=== PATIENT | female | born 1955 | race Caucasian/White ===

== ENCOUNTER 2024-09-22 13:40 | Inpatient (IN) | payer OTHER, SELFPAY ==
--- NOTE | ~2024-09-22 | CT_ITS ---
CLINICAL HISTORY: confusion hallucinations CT head without contrast Comparison: None Findings: No intra-axial mass, midline shift, hydrocephalus, or acute hemorrhage. There is mild cortical atrophy. The visualized paranasal sinuses and mastoid air cells are normal. The orbits are within normal limits. No skull fracture. IMPRESSION: 1. No acute intracranial findings. This document has been electronically signed by: Sohail Martinez MD on 09/24/2024 10:55:56
[2024-09-22 16:00] VITALS: BP 124/72; PULSE 72; RESP 16; TEMP 36.6; O2SAT 97; BMI 28.2
--- NOTE | 2024-09-22 18:56 | PC.ADMIT ---
Chelita Mcgrath arrived via stretcher from [facility]. She is awake and alert and oriented x4. She appears to be of stated age. Her first language is Georgian, she speaks/understands Yoruba selectively. Per the ED nurse they had been talking together in Yoruba all shift and then she switched to only Georgian for no particular reason. Hospital firer marine present for admission. She was cooperative with skin/safety check. Her skin check is only significant for changes in pigmentation on anterior legs and feet, she reports ?this only started since moving into that apartment?.? Chelita has a documented history of schizophrenia, HTN, GERD and hypothyroidism.? She doesn't smoke, drink or do any illicit drugs. She stopped taking her medications around July 2024. Her daughters picking machine operator helper her RX for her but do not fill her pill case.? When asked what brought her to the hospital, ?my daughters said I needed to?, when pressed further, ?someone is coming into my house and putting something in my water and it gives me stomach pain and I have diarrhea.?, ?it makes the back of my head hurt too?, she is expressing paranoid thought processes. ?They are listening, [employer] came in and set up these things that are listening to everything, they are here too.? She could not be reassured. She eyed this nurse suspiciously throughout the admission. ?You look weird, what's wrong with you?? she asked this nurse. ?I shouldn't sign anything while I am here. My daughter Nena is in on it too, all my daughters are.? Since arrival she has been asking ?what did I do to you, to any of you? Why do you want to hurt me? Your all talking about me, laughing at me! I hear you, the other people too!? She cannot be reassured. She denies urges to harm self or others and any visual or perceptual disturbances, but she clearly is responding. She refused to sign in and remains on a 12B. She refused to sign any paperwork, she does not know her pharmacy ?its on [address]?, she doesn't want me to call her daughter and no medications were listed in the paperwork from [facility]. She is unknown to this hospital. She was oriented to room and routine and is on 15 minute safety checks.?
[2024-09-22 20:00] VITALS: BP 191/86; PULSE 86; TEMP 37.1; O2SAT 98
[2024-09-22] MEDS: Zolpidem Tartrate 5 MG TABLET 10 MG PO (20:45)
[2024-09-22] MEDS: hydrOXYzine HCL 25 MG TABLET PO (20:45)
[2024-09-22 22:03] VITALS: BP 191/86; PULSE 98
[2024-09-22] MEDS: carvediloL 25 MG TABLET PO (22:03)
[2024-09-22] MEDS: traZODone HCL 50 MG TABLET 150 MG PO (22:08)
[2024-09-23] MEDS: Levothyroxine Sodium 88 MCG TABLET PO (06:37)
[2024-09-23] MEDS: Atorvastatin Calcium 40 MG TABLET PO (08:44)
[2024-09-23] MEDS: Calcium Carbonate 750 MG TAB.CHEW PO (08:45)
[2024-09-23] MEDS: Gabapentin 300 MG CAPSULE PO ×2 (08:45→20:51)
[2024-09-23 08:47] VITALS: BP 133/87; PULSE 78
[2024-09-23] MEDS: carvediloL 25 MG TABLET PO ×2 (08:47→20:04)
[2024-09-23] MEDS: Valsartan 160 MG TABLET PO (08:47)
[2024-09-23 08:48] VITALS: BP 133/87
[2024-09-23] MEDS: amLODIPine Besylate 10 MG TABLET PO (08:48)
[2024-09-23 08:57] VITALS: BP 133/87; PULSE 78; RESP 20; TEMP 36.5; O2SAT 96
[2024-09-23 09:01] LABS: Estimated Average Glucose 105 mg/dL; Hemoglobin A1c % 5.3 % (<6.0)
[2024-09-23 09:24] LABS: Alanine Aminotransferase 23 U/L (0-31); Alkaline Phosphatase 51 U/L (39-117); Anion Gap 10 (12-20); Aspartate Amino Transferase 23 U/L (5-31); Bilirubin Total 0.3 mg/dL (0.0-1.0); Blood Urea Nitrogen 7 mg/dL (9-16); Calcium 9.3 mg/dL (8.4-10.2); Carbon Dioxide 33 mmol/L (22-29); Chloride 104 mmol/L (96-108); Cholesterol 193 mg/dL (<200); Estimated Glomerular Filt Rate > 60; Glucose Random 97 mg/dL (60-115); HDL Cholesterol 45 mg/dL (>40); LDL Cholesterol Calculated 121 mg/dL (<100); Potassium 3.8 mmol/L (3.3-5.1); Sodium 143 mmol/L (135-145); Total Protein 7.3 g/dL (6.5-8.0); Triglycerides 135 mg/dL (<150)
[2024-09-23 09:41] LABS: Free T4 (Free Thyroxine) 0.81 ng/dL (0.71-1.85); Thyroid Stimulating Hormone 25.14 uIU/mL (0.32-4.0)
--- NOTE | 2024-09-23 10:36 | HO.PM.IMCN ---
History of Present Illness Data of Consult Service Date: 09/23/24 Primary Care Provider: None Physician HPI Reason for consult: Admission H&P Pt is a 69-year-old female with a PMH significant for?HTN, HLD, hypothyroidism, GERD, and schizophrenia who is admitted to M5 psychiatry unit for delusions and medication noncompliance. Pt apparently believes her family and other individuals has been sneaking into her house put an unknown substance into water and coffee to make her sick. Daughter reported that pt had endorsed SI with plan to jump out of a 5th story window. Medical consult for admission H&P. Pt seen and evaluated on the unit where pt is resting comfortably in bed. Pt has been moved to the isolation room due to active psychotic state and accusatory statements made toward staff and previous roommates. Pt continues to be actively psychotic at time of interview and exam, and is difficult to redirect. HPI and ROS difficult to obtain due to patient's psychiatric state and tangential thoughts. However, pt does not appear to have any acute medical complaints at this time. Labs reviewed, significant for elevated TSH of 25.14 but normal T4 at 0.81. Review of Systems Review of Systems: Difficult to obtain due to patient's mental status. PMFSH Social History Household Members: None Housing: Apartment Patient Tobacco Use Status: Never used Tobacco Currently Displaying Signs/Symptoms of Drug Intoxication Withdrawal: No Spiritual Healthcare Practices: refusing to respond [facility] Practices: I believe in shereen and he knows I love him, thats all Advance Directives: No Advance Directives Information Provided: Yes Do you have thoughts of harming others: None Do you have a plan to hurt others: No Plan Recently lost weight without trying: Yes How much weight loss: 14-23 pounds Eating poorly because of decreased appetite: No Nutrition screen score: 4 Patient : No : No Poor oral hygiene: No Meds Allergies Allergy/AdvReac Type Severity Reaction Status Date / Time morphine Allergy Unknown Verified 09/22/24 15:41 oxycodone [From Percocet] Allergy Unknown Verified 09/22/24 15:41 lactose AdvReac Diarrhea Verified 09/22/24 15:41 Active Medications: Current Medications Acetaminophen (Acetaminophen 325 Mg Tablet) 650 mg PO Q6H PRN PRN Reason: Headache/Pain, Scale 1-10 Al Hydroxide/Mg Hydroxide (Magnesium Hydrox/Alum Hydrox 30 Ml Oral.Susp) 30 ml PO Q6H PRN PRN Reason: Heartburn/Nausea Amlodipine Besylate (Amlodipine Besylate 10 Mg Tablet) 10 mg PO DAILY [facility]; Protocol Last Admin: 09/23/24 08:48 Dose: 10 mg Atorvastatin Calcium (Atorvastatin Calcium 40 Mg Tablet) 40 mg PO DAILY [facility] Last Admin: 09/23/24 08:44 Dose: 40 mg Calcium Carbonate (Calcium Carbonate 750 Mg Tab.Chew) 750 mg PO DAILY [facility] Last Admin: 09/23/24 08:45 Dose: 750 mg Carvedilol (Carvedilol 25 Mg Tablet) 25 mg PO BID [facility]; Protocol Last Admin: 09/23/24 08:47 Dose: 25 mg Gabapentin (Gabapentin 300 Mg Capsule) 300 mg PO BID [facility] Last Admin: 09/23/24 08:45 Dose: 300 mg Hydroxyzine HCl (Hydroxyzine Hcl 25 Mg Tablet) 25 mg PO Q6H PRN PRN Reason: mild anxiety Last Admin: 09/22/24 20:45 Dose: 25 mg Levothyroxine Sodium (Levothyroxine Sodium 88 Mcg Tablet) 88 mcg PO DAILY@0600 [facility] Last Admin: 09/23/24 06:37 Dose: 88 mcg Magnesium Hydroxide (Milk Of Magnesia 30 Ml Oral.Susp) 30 ml PO DAILY PRN PRN Reason: Constipation Nicotine (Nicotine 21 Mg Patch.Td24) 21 mg TRANSDERMA DAILY PRN PRN Reason: nicotine craving Nicotine Polacrilex (Nicotine Polacrilex 2 Mg Gum) 2 mg BUCCAL Q2H PRN PRN Reason: Nicotine Cravings Trazodone HCl (Trazodone Hcl 50 Mg Tablet) 50 mg PO BEDTIME MRX1 PRN PRN Reason: Insomnia Trazodone HCl (Trazodone Hcl 50 Mg Tablet) 150 mg PO BEDTIME [facility] Last Admin: 09/22/24 22:08 Dose: 150 mg Valsartan (Valsartan 160 Mg Tablet) 160 mg PO DAILY [facility] Last Admin: 09/23/24 08:47 Dose: 160 mg Zolpidem Tartrate (Zolpidem Tartrate 5 Mg Tablet) 10 mg PO BEDTIME [facility] Last Admin: 09/22/24 20:45 Dose: 10 mg Home Medications ?Medication ?Instructions ?Recorded ?Confirmed ?Last Taken ?Type amlodipine 10 mg tablet 10 mg PO DAILY 09/22/24 09/22/24 Unknown History atorvastatin 40 mg tablet 40 mg PO DAILY 09/22/24 09/22/24 Unknown History calcium carbonate (Calcium 600) 600 mg PO DAILY 09/22/24 09/22/24 Unknown History carvedilol 25 mg tablet 25 mg PO BID 09/22/24 09/22/24 Unknown History gabapentin 300 mg capsule 300 mg PO BID 09/22/24 09/22/24 Unknown History levothyroxine 88 mcg tablet 88 mcg PO DAILY 09/22/24 09/22/24 Unknown History olmesartan 40 mg tablet 40 mg PO DAILY 09/22/24 09/22/24 Unknown History trazodone 150 mg tablet 150 mg PO BEDTIME 09/22/24 09/22/24 Unknown History Physical Exam Vital Signs and Narrative: Vital Signs: Last Vital Signs Temp 97.7 F 09/23/24 08:57 Pulse 78 09/23/24 08:57 Resp 20 09/23/24 08:57 BP 133/87 09/23/24 08:57 Pulse Ox 96 09/23/24 08:57 O2 Del Method Room Air 09/23/24 08:57 BMI result Body Mass Index 28.2 General: Awake and alert, in no acute distress Resp: CTA bilaterally CVS: S1, S2, RRR GI: +BS, NT, no distention Skin: Warm, dry Neuro: Cranial nerves II-XII grossly intact bilaterally. Motor grossly intact bilaterally Extremities: No edema Psych: Calm, but actively psychotic, tangential thinking and difficult to redirect Results Labs 09/23/24 08:19 Labs: Laboratory Results - last 24 hr 09/23/24 08:19 Anion Gap 10 L Estim Creat Clear Calc 55.0 Estimated GFR > 60 Random Glucose 97 Estimat Average Glucose 105 Hemoglobin A1c % 5.3 Calcium 9.3 Total Bilirubin 0.3 AST 23 ALT 23 Alkaline Phosphatase 51 Total Protein 7.3 Albumin 4.0 Triglycerides 135 Cholesterol 193 LDL Cholesterol, Calc 121 H HDL Cholesterol 45 TSH 25.14 H Free T4 0.81 Assessment and Plan (1) Medical clearance for psychiatric admission: Status: Acute Plan Pt is a 69-year-old female with a PMH significant for?HTN, HLD, hypothyroidism, GERD, and schizophrenia who is admitted to [facility] psychiatry unit for delusions and medication noncompliance. Pt apparently believes her family and other individuals has been sneaking into her house put an unknown substance into water and coffee to make her sick. Daughter reported that pt had endorsed SI with plan to jump out of a 5th story window. Medical consult for admission H&P. Mood disorder Plan as per psychiatry Hypothyroidism TSH elevated 25.14, though free T4 WNL at 0.81 Continue levothyroxine Follow up outpatient with PCP in 3-6 months' time for repeat labs HTN BP overall well-controlled when last racing 110 63 Continue amlodipine, carvedilol, and olmesartan HLD Continue atorvastatin Pt otherwise has no acute medical complaints nor chronic medical conditions. Will sign off for now. Thank you for allowing us to participate in the care of this pt. Please re-consult if any acute issue or need arises.
--- NOTE | 2024-09-23 12:01 | P.PNPSI_ITS ---
Subjective Subjective Reason For Visit: psychosis and SI/ decompensated Diagnostics Vital Signs (24Hr): Vital Signs - 24 hr 09/22/24 16:00 09/22/24 20:00 09/22/24 22:03 Temperature 98 F 98.7 F Pulse Rate 72 86 98 Respiratory Rate 16 Blood Pressure 124/72 191/86 H 191/86 H Pulse Oximetry 97 98 Oxygen Delivery Method Room Air 09/23/24 08:47 09/23/24 08:47 09/23/24 08:48 Temperature Pulse Rate 78 Respiratory Rate Blood Pressure 133/87 133/87 133/87 Pulse Oximetry Oxygen Delivery Method 09/23/24 08:57 Temperature 97.7 F Pulse Rate 78 Respiratory Rate 20 Blood Pressure 133/87 Pulse Oximetry 96 Oxygen Delivery Method Room Air BMI result Body Mass Index 28.2 Labs 09/23/24 08:19 Labs: Laboratory Results - last 48 hr 09/23/24 08:19 Sodium 143 Potassium 3.8 Chloride 104 Carbon Dioxide 33 H Anion Gap 10 L BUN 7 L Creatinine 0.67 Estim Creat Clear Calc 55.0 Estimated GFR > 60 Random Glucose 97 Estimat Average Glucose 105 Hemoglobin A1c % 5.3 Calcium 9.3 Total Bilirubin 0.3 AST 23 ALT 23 Alkaline Phosphatase 51 Total Protein 7.3 Albumin 4.0 Triglycerides 135 Cholesterol 193 LDL Cholesterol, Calc 121 H HDL Cholesterol 45 TSH 25.14 H Free T4 0.81 Medications Medications Current Medications Acetaminophen (Acetaminophen 325 Mg Tablet) 650 mg PO Q6H PRN PRN Reason: Headache/Pain, Scale 1-10 Al Hydroxide/Mg Hydroxide (Magnesium Hydrox/Alum Hydrox 30 Ml Oral.Susp) 30 ml PO Q6H PRN PRN Reason: Heartburn/Nausea Amlodipine Besylate (Amlodipine Besylate 10 Mg Tablet) 10 mg PO DAILY [facility]; Protocol Last Admin: 09/23/24 08:48 Dose: 10 mg Atorvastatin Calcium (Atorvastatin Calcium 40 Mg Tablet) 40 mg PO DAILY [facility] Last Admin: 09/23/24 08:44 Dose: 40 mg Calcium Carbonate (Calcium Carbonate 750 Mg Tab.Chew) 750 mg PO DAILY [facility] Last Admin: 09/23/24 08:45 Dose: 750 mg Carvedilol (Carvedilol 25 Mg Tablet) 25 mg PO BID [facility]; Protocol Last Admin: 09/23/24 08:47 Dose: 25 mg Gabapentin (Gabapentin 300 Mg Capsule) 300 mg PO BID [facility] Last Admin: 09/23/24 08:45 Dose: 300 mg Hydroxyzine HCl (Hydroxyzine Hcl 25 Mg Tablet) 25 mg PO Q6H PRN PRN Reason: mild anxiety Last Admin: 09/22/24 20:45 Dose: 25 mg Levothyroxine Sodium (Levothyroxine Sodium 88 Mcg Tablet) 88 mcg PO DAILY@0600 [facility] Last Admin: 09/23/24 06:37 Dose: 88 mcg Magnesium Hydroxide (Milk Of Magnesia 30 Ml Oral.Susp) 30 ml PO DAILY PRN PRN Reason: Constipation Nicotine (Nicotine 21 Mg Patch.Td24) 21 mg TRANSDERMA DAILY PRN PRN Reason: nicotine craving Nicotine Polacrilex (Nicotine Polacrilex 2 Mg Gum) 2 mg BUCCAL Q2H PRN PRN Reason: Nicotine Cravings Trazodone HCl (Trazodone Hcl 50 Mg Tablet) 50 mg PO BEDTIME MRX1 PRN PRN Reason: Insomnia Trazodone HCl (Trazodone Hcl 50 Mg Tablet) 150 mg PO BEDTIME [facility] Last Admin: 09/22/24 22:08 Dose: 150 mg Valsartan (Valsartan 160 Mg Tablet) 160 mg PO DAILY [facility] Last Admin: 09/23/24 08:47 Dose: 160 mg Zolpidem Tartrate (Zolpidem Tartrate 5 Mg Tablet) 10 mg PO BEDTIME [facility] Last Admin: 09/22/24 20:45 Dose: 10 mg Allergies Allergies Allergy/AdvReac Type Severity Reaction Status Date / Time morphine Allergy Unknown Verified 09/22/24 15:41 oxycodone [From Percocet] Allergy Unknown Verified 09/22/24 15:41 lactose AdvReac Diarrhea Verified 09/22/24 15:41 Assessment & Plan Time Spent With Patient Time: Total time managing care of this patient today ____ minutes.
--- NOTE | 2024-09-23 13:03 | P.HPPS_ITS ---
HPI Date of Service: 09/23/24 Chief Complaint: psychosis and SI/ decompensated Sources of Information: patient interviewed and crisis/core team assessment reviewed Additional Sources of Information: Patient seen and full evaluation 13:30 hospitalist evaluation reviewed. 09/23/24 HPI Subjective Notes: Section 12B Narrative: Patient is admitted on a section 12 B. Patient is referred from [facility] Emergency room. Information from [facility]. Patient is a 6-year-old female who reportedly lives alone in her apartment in [place]. She was seen by the crisis team at her house. Patient has been seen in the past by Orlin Lambert has been on Cymbalta and trazodone in the past. She did have a hospitalization in the past in [place] reportedly under similar circumstances. Patient has most recently not been taking her medication saying it is not the correct medication. She feels according to evaluation that her children and others or reportedly poisoning her food changing her medication and reportedly hears people talking about these things. Patient reportedly has been depressed with poor concentration lack of appetite because she feels her food is poisoned. There is a question of past diagnosis of schizophrenia over this is unclear. Patient does not appear to have recently been prescribed any antipsychotic medication patient reportedly had made suicidal statements The patient had reportedly been prescribed gabapentin 600 b.i.d. Ambien 10 mg at HS atorvastatin 40 mg daily trazodone 150 at bedtime spironolactone 10 mg carvedilol 25 mg almost start and 40 mg unclear when the patient last took medication Medical Evaluation Reviewed: Yes [facility] Narrative: htn elevated cholesterol elevated TSH UA negative for bacteria electrolytes liver function tests within normal limits Family History: unclear Social History: Patient lives alone 4 daughters Substance History: Not known Trauma History: Not known Diagnostics Vital Signs (24Hr): Vital Signs - 24 hr 09/22/24 16:00 09/22/24 20:00 09/22/24 22:03 Temperature 98 F 98.7 F Pulse Rate 72 86 98 Respiratory Rate 16 Blood Pressure 124/72 191/86 H 191/86 H Pulse Oximetry 97 98 Oxygen Delivery Method Room Air 09/23/24 08:47 09/23/24 08:47 09/23/24 08:48 Temperature Pulse Rate 78 Respiratory Rate Blood Pressure 133/87 133/87 133/87 Pulse Oximetry Oxygen Delivery Method 09/23/24 08:57 Temperature 97.7 F Pulse Rate 78 Respiratory Rate 20 Blood Pressure 133/87 Pulse Oximetry 96 Oxygen Delivery Method Room Air BMI result Body Mass Index 28.2 Labs 09/23/24 08:19 Labs: Laboratory Results - last 48 hr 09/23/24 08:19 Sodium 143 Potassium 3.8 Chloride 104 Carbon Dioxide 33 H Anion Gap 10 L BUN 7 L Creatinine 0.67 Estim Creat Clear Calc 55.0 Estimated GFR > 60 Random Glucose 97 Estimat Average Glucose 105 Hemoglobin A1c % 5.3 Calcium 9.3 Total Bilirubin 0.3 AST 23 ALT 23 Alkaline Phosphatase 51 Total Protein 7.3 Albumin 4.0 Triglycerides 135 Cholesterol 193 LDL Cholesterol, Calc 121 H HDL Cholesterol 45 TSH 25.14 H Free T4 0.81 Meds/Allergies Meds Home Medications ?Medication ?Instructions ?Recorded ?Confirmed ?Type amlodipine 10 mg tablet 10 mg PO DAILY 09/22/24 09/22/24 History atorvastatin 40 mg tablet 40 mg PO DAILY 09/22/24 09/22/24 History calcium carbonate (Calcium 600) 600 mg PO DAILY 09/22/24 09/22/24 History carvedilol 25 mg tablet 25 mg PO BID 09/22/24 09/22/24 History gabapentin 300 mg capsule 300 mg PO BID 09/22/24 09/22/24 History levothyroxine 88 mcg tablet 88 mcg PO DAILY 09/22/24 09/22/24 History olmesartan 40 mg tablet 40 mg PO DAILY 09/22/24 09/22/24 History trazodone 150 mg tablet 150 mg PO BEDTIME 09/22/24 09/22/24 History Allergies Allergies Allergy/AdvReac Type Severity Reaction Status Date / Time morphine Allergy Unknown Verified 09/22/24 15:41 oxycodone [From Percocet] Allergy Unknown Verified 09/22/24 15:41 lactose AdvReac Diarrhea Verified 09/22/24 15:41 Mental Status Exam Mental Status Exam Narrative: Patient states she does not want an certified court/medical interpreter. She is unsure of the year address she lives in does know she is in the hospital and [place] patient describes that her medicine was being changed at home people were coming into her house she was unable to eat. Patient states her medications are all wrong suspicious mood was anxious somewhat constricted denied thoughts of harm to herself or others accused this fiction and nonfiction writer prose of being a doctor they gave her an injection in [place] a few years ago insight impaired judgment impaired Assessment & Plan Assessment & Plan (1) Major depression with psychotic features: Status: Acute Code(s): F32.3 - Major depressive disorder, single episode, severe with psychotic features (2) Cognitive and behavioral changes: Status: Acute Code(s): R41.89 - Other symptoms and signs involving cognitive functions and awareness; R46.89 - Other symptoms and signs involving appearance and behavior (3) Hypothyroidism: Status: Acute Code(s): E03.9 - Hypothyroidism, unspecified Plan Patient admitted with psychosis anxiety what appears to be cognitive impairment no reported history of dementia. Untreated hypothyroidism at this point since patient has not been taking medication. Initial labs unremarkable would check head CT scan B12 folate olanzapine started 2.5 mg at bedtime consider restart antidepressant had previously been on Cymbalta. Need further history from family regarding cognitive and psychiatric history. Encourage food and fluids would be good to obtain discharge summary from [place] admission Patient educated on: diagnosis, medication risk/benefits and medical condition Informed Consent: does not understand Reason for continued inpatient stay Substantial Risk for: harm to self, inability to function, rapid decompensation and med/psych decompensation Statement Statement: I have reviewed the history and physical and performed a pertinent examination on my patient. No changes have occurred unless specified. If the History and Physical was not performed prior to admission, the Hospitalist's service will be consulted for completing the admission physical. Time Spent With Patient Time: Total time managing care of this patient today _50___ minutes.
--- NOTE | 2024-09-23 15:21 | PC.NURSE ---
Per previous admitting nurse on M5- Pt came in with her license and refused to hand it over. She insisted on keeping it in her possession despite encouragement to place in safe keeping.
[2024-09-23] MEDS: OLANZapine 2.5 MG TABLET PO (17:25)
[2024-09-23 20:00] VITALS: BP 148/75; PULSE 73; TEMP 36.4; O2SAT 97
[2024-09-23 20:04] VITALS: BP 148/75; PULSE 73
[2024-09-23] MEDS: Zolpidem Tartrate 5 MG TABLET 10 MG PO (20:04)
[2024-09-23] MEDS: traZODone HCL 50 MG TABLET 150 MG PO (20:51)
[2024-09-24] MEDS: Levothyroxine Sodium 88 MCG TABLET PO (06:34)
[2024-09-24] MEDS: Atorvastatin Calcium 40 MG TABLET PO (08:24)
[2024-09-24] MEDS: Gabapentin 300 MG CAPSULE PO ×2 (08:24→20:38)
[2024-09-24 08:25] VITALS: BP 110/63; PULSE 64
[2024-09-24] MEDS: amLODIPine Besylate 10 MG TABLET PO (08:25)
[2024-09-24] MEDS: carvediloL 25 MG TABLET PO ×2 (08:25→20:38)
[2024-09-24] MEDS: Valsartan 160 MG TABLET PO (08:25)
[2024-09-24 08:35] VITALS: BP 110/63; PULSE 69; TEMP 36.7; O2SAT 96
--- NOTE | 2024-09-24 18:59 | PC.NURSE ---
Updated and correct Family Contact Info: Daughter Nena [phone] Daughter Ysabel [phone]
[2024-09-24 20:00] VITALS: BP 135/64; PULSE 63; RESP 16; TEMP 36.6; O2SAT 96
[2024-09-24] MEDS: traZODone HCL 50 MG TABLET 150 MG PO (20:37)
[2024-09-24] MEDS: Zolpidem Tartrate 5 MG TABLET 10 MG PO (20:37)
[2024-09-24] MEDS: OLANZapine 2.5 MG TABLET PO (20:38)
--- NOTE | 2024-09-24 23:14 | P.PNPSI_ITS ---
Subjective Subjective Date of Service: 09/24/24 Reason For Visit: psychosis and SI/ decompensated Interim History: Per staff: patient had been moved last night to room 505 on account of paranoia and feeling her roommate was trying to kill her Patient seen lingering in doorway of room 505. Petite, in hospital gown, ungroomed. Watching susupciously others. She accuses play writer of not being a doctor when I introduce myself . When asked about her stay she says she doesnt feel safe here. They want to do something to me. I think you do too . Says sometimes people put thoughts in her heads. Mood is okay . Slept last night, but not much night before. Denies SI, AVH. Review of Systems Review of Systems Difficult to obtain due to patient's mental status. Mental Status Exam Mental Status Exam Narrative: Patient states she does not want an lang interpreter. She is unsure of the year address she lives in does know she is in the hospital and [place] patient describes that her medicine was being changed at home people were coming into her house she was unable to eat. Patient states her medications are all wrong suspicious mood was anxious somewhat constricted denied thoughts of harm to herself or others accused this play writer of being a doctor they gave her an injection in [place] a few years ago insight impaired judgment impaired Diagnostics Vital Signs (24Hr): Vital Signs - 24 hr 09/24/24 08:25 09/24/24 08:25 09/24/24 08:25 Temperature Pulse Rate 64 Respiratory Rate Blood Pressure 110/63 110/63 110/63 Pulse Oximetry Oxygen Delivery Method 09/24/24 08:35 09/24/24 20:00 Temperature 98.1 F 97.8 F Pulse Rate 69 63 Respiratory Rate 16 Blood Pressure 110/63 135/64 Pulse Oximetry 96 96 Oxygen Delivery Method Room Air Room Air BMI result Body Mass Index 28.2 Labs 09/23/24 08:19 Labs: Laboratory Results - last 48 hr 09/23/24 08:19 Sodium 143 Potassium 3.8 Chloride 104 Carbon Dioxide 33 H Anion Gap 10 L BUN 7 L Creatinine 0.67 Estim Creat Clear Calc 55.0 Estimated GFR > 60 Random Glucose 97 Estimat Average Glucose 105 Hemoglobin A1c % 5.3 Calcium 9.3 Total Bilirubin 0.3 AST 23 ALT 23 Alkaline Phosphatase 51 Total Protein 7.3 Albumin 4.0 Triglycerides 135 Cholesterol 193 LDL Cholesterol, Calc 121 H HDL Cholesterol 45 TSH 25.14 H Free T4 0.81 Medications Medications Current Medications Acetaminophen (Acetaminophen 325 Mg Tablet) 650 mg PO Q6H PRN PRN Reason: Headache/Pain, Scale 1-10 Al Hydroxide/Mg Hydroxide (Magnesium Hydrox/Alum Hydrox 30 Ml Oral.Susp) 30 ml PO Q6H PRN PRN Reason: Heartburn/Nausea Amlodipine Besylate (Amlodipine Besylate 10 Mg Tablet) 10 mg PO DAILY [facility]; Protocol Last Admin: 09/24/24 08:25 Dose: 10 mg Atorvastatin Calcium (Atorvastatin Calcium 40 Mg Tablet) 40 mg PO DAILY [facility] Last Admin: 09/24/24 08:24 Dose: 40 mg Calcium Carbonate (Calcium Carbonate 750 Mg Tab.Chew) 750 mg PO DAILY [facility] Last Admin: 09/24/24 08:30 Dose: Not Given Carvedilol (Carvedilol 25 Mg Tablet) 25 mg PO BID [facility]; Protocol Last Admin: 09/24/24 20:38 Dose: 25 mg Gabapentin (Gabapentin 300 Mg Capsule) 300 mg PO BID [facility] Last Admin: 09/24/24 20:38 Dose: 300 mg Hydroxyzine HCl (Hydroxyzine Hcl 25 Mg Tablet) 25 mg PO Q6H PRN PRN Reason: mild anxiety Last Admin: 09/22/24 20:45 Dose: 25 mg Levothyroxine Sodium (Levothyroxine Sodium 88 Mcg Tablet) 88 mcg PO DAILY@0600 [facility] Last Admin: 09/24/24 06:34 Dose: 88 mcg Magnesium Hydroxide (Milk Of Magnesia 30 Ml Oral.Susp) 30 ml PO DAILY PRN PRN Reason: Constipation Nicotine (Nicotine 21 Mg Patch.Td24) 21 mg TRANSDERMA DAILY PRN PRN Reason: nicotine craving Nicotine Polacrilex (Nicotine Polacrilex 2 Mg Gum) 2 mg BUCCAL Q2H PRN PRN Reason: Nicotine Cravings Olanzapine (Olanzapine 2.5 Mg Tablet) 2.5 mg PO BEDTIME [facility] Last Admin: 09/24/24 20:38 Dose: 2.5 mg Olanzapine (Olanzapine 2.5 Mg Tablet) 2.5 mg PO BID PRN PRN Reason: anxiety/restlessness Trazodone HCl (Trazodone Hcl 50 Mg Tablet) 50 mg PO BEDTIME MRX1 PRN PRN Reason: Insomnia Trazodone HCl (Trazodone Hcl 50 Mg Tablet) 150 mg PO BEDTIME [facility] Last Admin: 09/24/24 20:37 Dose: 150 mg Valsartan (Valsartan 160 Mg Tablet) 160 mg PO DAILY [facility] Last Admin: 09/24/24 08:25 Dose: 160 mg Zolpidem Tartrate (Zolpidem Tartrate 5 Mg Tablet) 10 mg PO BEDTIME [facility] Last Admin: 09/24/24 20:37 Dose: 10 mg Allergies Allergies Allergy/AdvReac Type Severity Reaction Status Date / Time morphine Allergy Unknown Verified 09/22/24 15:41 oxycodone [From Percocet] Allergy Unknown Verified 09/22/24 15:41 lactose AdvReac Diarrhea Verified 09/22/24 15:41 Assessment & Plan Assessment & Plan (1) Medical clearance for psychiatric admission: Status: Acute Code(s): Z00.8 - Encounter for other general examination Plan Pt is a 69-year-old female with a PMH significant for?HTN, HLD, hypothyroidism, GERD, and schizophrenia who is admitted to M5 psychiatry unit for delusions and medication noncompliance. Pt apparently believes her family and other individuals has been sneaking into her house put an unknown substance into water and coffee to make her sick. Daughter reported that pt had endorsed SI with plan to jump out of a 5th story window. Medical consult for admission H&P. Mood disorder Plan as per psychiatry Hypothyroidism TSH elevated 25.14, though free T4 WNL at 0.81 Continue levothyroxine Follow up outpatient with PCP in 3-6 months' time for repeat labs HTN BP overall well-controlled when last racing 110 63 Continue amlodipine, carvedilol, and olmesartan HLD Continue atorvastatin Pt otherwise has no acute medical complaints nor chronic medical conditions. Will sign off for now. Thank you for allowing us to participate in the care of this pt. Please re-consult if any acute issue or need arises. Reason for continued inpatient stay Substantial Risk for: inability to function, rapid decompensation and med/psych decompensation Time Spent With Patient Time: Total time managing care of this patient today ____ minutes.
[2024-09-25 08:00] VITALS: BP 130/63; PULSE 58; RESP 16; TEMP 36.6; O2SAT 98
[2024-09-25] MEDS: Gabapentin 300 MG CAPSULE PO ×2 (08:30→20:35)
[2024-09-25] MEDS: Atorvastatin Calcium 40 MG TABLET PO (08:30)
[2024-09-25] MEDS: Valsartan 160 MG TABLET PO (08:31)
[2024-09-25] MEDS: amLODIPine Besylate 10 MG TABLET PO (08:31)
[2024-09-25] MEDS: carvediloL 25 MG TABLET PO ×2 (08:31→20:34)
[2024-09-25] MEDS: Levothyroxine Sodium 88 MCG TABLET PO (08:31)
--- NOTE | 2024-09-25 09:53 | P.PNPSI_ITS ---
Subjective Subjective Date of Service: 09/25/24 Reason For Visit: psychosis and SI/ decompensated Subjective Notes: Section 12B Interim History: Met with pt, team, [facility] [employer]. Guarded, agitated and resistant, along with fearful during out meeting. What have I done, is my mother alive ? I left my mother to come here. Reports she believes we stole her phone. She wants nothing from her admission. Believes there are camers and devices where she is being recorded. Responds to questions with questions. Paranoia evident Team reports irritability and intermittent agitation. Current milieu is active, high volume. We have asked pt be considered for geriatric unit transfer. Medication Compliance: Intermittent Side effects from medications: No Review of Systems Acute medical concerns: No Medical Review of Systems: unchanged Review of Systems Review of Systems no. Is told she has HTN but states this is a lie Asks how her head test went. CAT negative. Mental Status Exam Mental Status Exam Patient Appearance: Disheveled Patient Orientation: Person and Place Level of Consciousness: Alert Patient Behavior: Guarded, Talkative, Suspicious, Resistive to Care, Distractible, Confused and Good Eye Contact Mood Description: Withdrawn and Hostile Affect Description: Withdrawn and Hostile Patient Cognition Impaired: Yes Ability to Follow Directions: Fair Speech Pattern: Spontaneous Speech Memory Description: Remote Impaired Hallucinations: None Delusions: Paranoid Ideation and Present Thought Process: Illogical, Distracted and Rumination Thought Content: positive for Perseveration, positive for Tangential and positive for Disorganized Depressive Symptoms: Increased Anxiety, Increased Irritability and Difficulty Concentrating Abnormal Motor Activity Signs and Symptoms: Restlessness Judgement: Poor Diagnostics Vital Signs (24Hr): Vital Signs - 24 hr 09/24/24 20:00 09/25/24 08:00 Temperature 97.8 F 97.8 F Pulse Rate 63 58 Respiratory Rate 16 16 Blood Pressure 135/64 130/63 Pulse Oximetry 96 98 Oxygen Delivery Method Room Air Room Air BMI result Body Mass Index 28.2 Labs 09/23/24 08:19 Medications Medications Current Medications Acetaminophen (Acetaminophen 325 Mg Tablet) 650 mg PO Q6H PRN PRN Reason: Headache/Pain, Scale 1-10 Al Hydroxide/Mg Hydroxide (Magnesium Hydrox/Alum Hydrox 30 Ml Oral.Susp) 30 ml PO Q6H PRN PRN Reason: Heartburn/Nausea Amlodipine Besylate (Amlodipine Besylate 10 Mg Tablet) 10 mg PO DAILY [facility]; Protocol Last Admin: 09/25/24 08:31 Dose: 10 mg Atorvastatin Calcium (Atorvastatin Calcium 40 Mg Tablet) 40 mg PO DAILY [facility] Last Admin: 09/25/24 08:30 Dose: 40 mg Calcium Carbonate (Calcium Carbonate 750 Mg Tab.Chew) 750 mg PO DAILY [facility] Last Admin: 09/25/24 08:38 Dose: Not Given Carvedilol (Carvedilol 25 Mg Tablet) 25 mg PO BID [facility]; Protocol Last Admin: 09/25/24 08:31 Dose: 25 mg Gabapentin (Gabapentin 300 Mg Capsule) 300 mg PO BID [facility] Last Admin: 09/25/24 08:30 Dose: 300 mg Hydroxyzine HCl (Hydroxyzine Hcl 25 Mg Tablet) 25 mg PO Q6H PRN PRN Reason: mild anxiety Last Admin: 09/22/24 20:45 Dose: 25 mg Levothyroxine Sodium (Levothyroxine Sodium 88 Mcg Tablet) 88 mcg PO DAILY@0600 [facility] Last Admin: 09/25/24 08:31 Dose: 88 mcg Magnesium Hydroxide (Milk Of Magnesia 30 Ml Oral.Susp) 30 ml PO DAILY PRN PRN Reason: Constipation Nicotine (Nicotine 21 Mg Patch.Td24) 21 mg TRANSDERMA DAILY PRN PRN Reason: nicotine craving Nicotine Polacrilex (Nicotine Polacrilex 2 Mg Gum) 2 mg BUCCAL Q2H PRN PRN Reason: Nicotine Cravings Olanzapine (Olanzapine 2.5 Mg Tablet) 2.5 mg PO BEDTIME [facility] Last Admin: 09/24/24 20:38 Dose: 2.5 mg Olanzapine (Olanzapine 2.5 Mg Tablet) 2.5 mg PO BID PRN PRN Reason: anxiety/restlessness Trazodone HCl (Trazodone Hcl 50 Mg Tablet) 50 mg PO BEDTIME MRX1 PRN PRN Reason: Insomnia Trazodone HCl (Trazodone Hcl 50 Mg Tablet) 150 mg PO BEDTIME [facility] Last Admin: 09/24/24 20:37 Dose: 150 mg Valsartan (Valsartan 160 Mg Tablet) 160 mg PO DAILY [facility] Last Admin: 09/25/24 08:31 Dose: 160 mg Zolpidem Tartrate (Zolpidem Tartrate 5 Mg Tablet) 10 mg PO BEDTIME [facility] Last Admin: 09/24/24 20:37 Dose: 10 mg Allergies Allergies Allergy/AdvReac Type Severity Reaction Status Date / Time morphine Allergy Unknown Verified 09/22/24 15:41 oxycodone [From Percocet] Allergy Unknown Verified 09/22/24 15:41 lactose AdvReac Diarrhea Verified 09/22/24 15:41 Assessment & Plan Assessment & Plan (1) Major depression with psychotic features: Status: Acute Code(s): F32.3 - Major depressive disorder, single episode, severe with psychotic features (2) Cognitive and behavioral changes: Status: Acute Code(s): R41.89 - Other symptoms and signs involving cognitive functions and awareness; R46.89 - Other symptoms and signs involving appearance and behavior Plan Pt is a 69-year-old female with a PMH significant for?HTN, HLD, hypothyroidism, GERD, and schizophrenia who is admitted to M5 psychiatry unit for delusions and medication noncompliance. Pt apparently believes her family and other individuals has been sneaking into her house put an unknown substance into water and coffee to make her sick. Daughter reported that pt had endorsed SI with plan to jump out of a 5th story window. Medical consult for admission H&P. Mood disorder Plan as per psychiatry Hypothyroidism TSH elevated 25.14, though free T4 WNL at 0.81 Continue levothyroxine Follow up outpatient with PCP in 3-6 months' time for repeat labs HTN BP overall well-controlled when last racing 110 63 Continue amlodipine, carvedilol, and olmesartan HLD Continue atorvastatin Pt otherwise has no acute medical complaints nor chronic medical conditions. Will sign off for now. Thank you for allowing us to participate in the care of this pt. Please re-consult if any acute issue or need arises. 09/25/24: Increase Olanzapine to 2.5 mg bid Reason for continued inpatient stay Substantial Risk for: rapid decompensation Time Spent With Patient Time: Total time managing care of this patient today ____ minutes.
[2024-09-25 20:00] VITALS: BP 124/69; PULSE 66; RESP 16; TEMP 36.6; O2SAT 99
[2024-09-25 20:34] VITALS: BP 124/69; PULSE 66
[2024-09-25] MEDS: traZODone HCL 50 MG TABLET 150 MG PO (20:35)
[2024-09-25] MEDS: OLANZapine 2.5 MG TABLET PO (20:35)
[2024-09-25] MEDS: Zolpidem Tartrate 5 MG TABLET 10 MG PO (20:36)
[2024-09-26] MEDS: Levothyroxine Sodium 88 MCG TABLET PO (06:41)
[2024-09-26 08:30] VITALS: BP 122/62; PULSE 57; TEMP 36.4; O2SAT 97
[2024-09-26] MEDS: Gabapentin 300 MG CAPSULE PO ×2 (09:25→20:59)
[2024-09-26] MEDS: amLODIPine Besylate 10 MG TABLET PO (09:25)
[2024-09-26] MEDS: OLANZapine 2.5 MG TABLET PO (09:25)
[2024-09-26] MEDS: carvediloL 25 MG TABLET PO ×2 (09:26→20:59)
[2024-09-26] MEDS: Atorvastatin Calcium 40 MG TABLET PO (09:26)
--- NOTE | 2024-09-26 09:59 | HO.PSYCHPN ---
Subjective Subjective Date of Service: 09/26/24 Reason For Visit: psychosis and SI/ decompensated Subjective Notes: Section 12B (09/27/24) Interim History: Continues irritable. Pt will transfer to , Geriatrics today. Discussion via phone with daughter Nena [phone], Giovanna BARRIOSW, [facility] [employer]. Daughter Ysbael will visit this afternoon and bring paperwork from treatment in [place] for team to review. [employer] family called police-pt's behavior was unsafe-she reported she received packages from [place] that would be exploding, told Nena she was not her daughter, was dialoguing with people who are no longer alive, refusing medications since ~ July. Hx of a similiar episode in [place] ~4 years ago, not as serious or intense as this one. She was admitted for one month. Daughter reports pt stated she was going to jump from the car on 09/21 while at [employer] and did try to jump from the window on Wednesday prior to crisis intervention-family needed to stop her. Sx started in May 2024 post GI procedure for gastritis. She woke up like this after surgery . Nena reports pt is [facility] at [facility] and [facility]- Zeyad Lambert DELIVERY ASSISTANT and [facility] for therapy [phone]. Historically, pt has always had labile moods, anger-no hx of suicide attempts, however ongoing SI. No hx of self harm- hx of aggression, usually calm, quiet, irritable. Current triggers to escalate paranoia include phones, TV with any blinking lights-she believes this to be a sign people are watching her. Discussed filing of Section 7. Nena agrees this is needed. Medication Compliance: Intermittent Side effects from medications: No Attending Groups: No Review of Systems Acute medical concerns: No Review of Systems Review of Systems Denies Mental Status Exam Mental Status Exam Patient Appearance: Disheveled Patient Orientation: Person and Place Level of Consciousness: Alert Patient Behavior: Guarded, Talkative, Suspicious, Resistive to Care, Distractible, Confused and Good Eye Contact Mood Description: Withdrawn and Hostile Affect Description: Withdrawn and Hostile Patient Cognition Impaired: Yes Ability to Follow Directions: Fair Speech Pattern: Spontaneous Speech Memory Description: Remote Impaired Hallucinations: None Delusions: Paranoid Ideation and Present Thought Process: Illogical, Distracted and Rumination Thought Content: positive for Perseveration, positive for Tangential and positive for Disorganized Depressive Symptoms: Increased Anxiety, Increased Irritability and Difficulty Concentrating Abnormal Motor Activity Signs and Symptoms: Restlessness Judgement: Poor Diagnostics Vital Signs (24Hr): Vital Signs - 24 hr 09/25/24 20:00 09/25/24 20:34 09/26/24 08:30 Temperature 98 F 97.6 F Pulse Rate 66 66 57 Respiratory Rate 16 Blood Pressure 124/69 124/69 122/62 Pulse Oximetry 99 97 Oxygen Delivery Method Room Air Room Air BMI result Body Mass Index 28.2 Labs 09/23/24 08:19 Medications Medications Current Medications Acetaminophen (Acetaminophen 325 Mg Tablet) 650 mg PO Q6H PRN PRN Reason: Headache/Pain, Scale 1-10 Al Hydroxide/Mg Hydroxide (Magnesium Hydrox/Alum Hydrox 30 Ml Oral.Susp) 30 ml PO Q6H PRN PRN Reason: Heartburn/Nausea Amlodipine Besylate (Amlodipine Besylate 10 Mg Tablet) 10 mg PO DAILY [facility]; Protocol Last Admin: 09/26/24 09:25 Dose: 10 mg Atorvastatin Calcium (Atorvastatin Calcium 40 Mg Tablet) 40 mg PO DAILY [facility] Last Admin: 09/26/24 09:26 Dose: 40 mg Calcium Carbonate (Calcium Carbonate 750 Mg Tab.Chew) 750 mg PO DAILY [facility] Last Admin: 09/26/24 09:34 Dose: Not Given Carvedilol (Carvedilol 25 Mg Tablet) 25 mg PO BID [facility]; Protocol Last Admin: 09/26/24 09:26 Dose: 25 mg Gabapentin (Gabapentin 300 Mg Capsule) 300 mg PO BID [facility] Last Admin: 09/26/24 09:25 Dose: 300 mg Hydroxyzine HCl (Hydroxyzine Hcl 25 Mg Tablet) 25 mg PO Q6H PRN PRN Reason: mild anxiety Last Admin: 09/22/24 20:45 Dose: 25 mg Levothyroxine Sodium (Levothyroxine Sodium 88 Mcg Tablet) 88 mcg PO DAILY@0600 [facility] Last Admin: 09/26/24 06:41 Dose: 88 mcg Magnesium Hydroxide (Milk Of Magnesia 30 Ml Oral.Susp) 30 ml PO DAILY PRN PRN Reason: Constipation Nicotine (Nicotine 21 Mg Patch.Td24) 21 mg TRANSDERMA DAILY PRN PRN Reason: nicotine craving Nicotine Polacrilex (Nicotine Polacrilex 2 Mg Gum) 2 mg BUCCAL Q2H PRN PRN Reason: Nicotine Cravings Olanzapine (Olanzapine 2.5 Mg Tablet) 2.5 mg PO BID PRN PRN Reason: anxiety/restlessness Olanzapine (Olanzapine 2.5 Mg Tablet) 2.5 mg PO BID [facility] Last Admin: 09/26/24 09:25 Dose: 2.5 mg Trazodone HCl (Trazodone Hcl 50 Mg Tablet) 150 mg PO BEDTIME [facility] Last Admin: 09/25/24 20:35 Dose: 150 mg Valsartan (Valsartan 160 Mg Tablet) 160 mg PO DAILY [facility] Last Admin: 09/26/24 09:35 Dose: Not Given Zolpidem Tartrate (Zolpidem Tartrate 5 Mg Tablet) 10 mg PO BEDTIME [facility] Last Admin: 09/25/24 20:36 Dose: 10 mg Allergies Allergies Allergy/AdvReac Type Severity Reaction Status Date / Time morphine Allergy Unknown Verified 09/22/24 15:41 oxycodone [From Percocet] Allergy Unknown Verified 09/22/24 15:41 lactose AdvReac Diarrhea Verified 09/22/24 15:41 Assessment & Plan Assessment & Plan (1) Cognitive and behavioral changes: Status: Acute Code(s): R41.89 - Other symptoms and signs involving cognitive functions and awareness; R46.89 - Other symptoms and signs involving appearance and behavior (2) Major depression with psychotic features: Status: Acute Code(s): F32.3 - Major depressive disorder, single episode, severe with psychotic features Plan Pt is a 69-year-old female with a PMH significant for?HTN, HLD, hypothyroidism, GERD, and schizophrenia who is admitted to M5 psychiatry unit for delusions and medication noncompliance. Pt apparently believes her family and other individuals has been sneaking into her house put an unknown substance into water and coffee to make her sick. Daughter reported that pt had endorsed SI with plan to jump out of a 5th story window. Medical consult for admission H&P. Mood disorder Plan as per psychiatry Hypothyroidism TSH elevated 25.14, though free T4 WNL at 0.81 Continue levothyroxine Follow up outpatient with PCP in 3-6 months' time for repeat labs HTN BP overall well-controlled when last racing 110 63 Continue amlodipine, carvedilol, and olmesartan HLD Continue atorvastatin Pt otherwise has no acute medical complaints nor chronic medical conditions. Will sign off for now. Thank you for allowing us to participate in the care of this pt. Please re-consult if any acute issue or need arises. 09/26/24- Increase Olanzapine to 5 mg bid Informed Consent: does not understand Reason for continued inpatient stay Substantial Risk for: rapid decompensation Time Spent With Patient Time: Total time managing care of this patient today ____ minutes.
[2024-09-26 16:05] VITALS: BMI 29.0
--- NOTE | 2024-09-26 16:35 | PC.NURSE ---
Patient arrived to from in w/c. Dx of Schizophrenia, Anxiety and Depression. At 16:05 her VS as follow: T 98.0, P 58, BP 121/66, O2sat 96% on RA, wt 129.4 lbs. Patient is mostly speaking [place] but able to understand some [place]ic, too. Denies pain. Check skin completed and wnl. Patient ambulates independently without any device. Here on 12B status. Oriented to the surroundings. Asking for a single room.
--- NOTE | 2024-09-26 18:51 | PC.NURSE ---
Patient is aware of need for urine sample. Said, she will let us know if she needs to go to the bathroom. When nurse later went to check on patient, she yelled to leave her alone, don't bother me, leave me alone . Will try again.
[2024-09-26 20:00] VITALS: BP 130/68; PULSE 60; RESP 18; TEMP 36.8; O2SAT 96
[2024-09-26] MEDS: OLANZapine 5 MG TABLET PO (20:59)
[2024-09-26] MEDS: traZODone HCL 50 MG TABLET 150 MG PO (20:59)
[2024-09-26] MEDS: Zolpidem Tartrate 5 MG TABLET 10 MG PO (21:00)
[2024-09-27] MEDS: Levothyroxine Sodium 88 MCG TABLET PO (05:40)
[2024-09-27 08:00] VITALS: BP 109/72; PULSE 63; RESP 16; TEMP 36.6; O2SAT 95
[2024-09-27 08:43] VITALS: BP 109/72
[2024-09-27] MEDS: Valsartan 160 MG TABLET PO (08:43)
[2024-09-27 08:46] VITALS: BP 109/72
[2024-09-27] MEDS: Gabapentin 300 MG CAPSULE PO ×2 (08:46→21:35)
[2024-09-27] MEDS: amLODIPine Besylate 10 MG TABLET PO (08:46)
[2024-09-27] MEDS: OLANZapine 5 MG TABLET PO ×2 (08:46→21:25)
[2024-09-27] MEDS: Atorvastatin Calcium 40 MG TABLET PO (08:47)
[2024-09-27] MEDS: carvediloL 25 MG TABLET PO ×2 (08:47→21:35)
[2024-09-27 20:00] VITALS: BP 130/59; PULSE 64; RESP 18; TEMP 36.5; O2SAT 96
--- NOTE | 2024-09-27 20:56 | HO.PSYCHPN ---
Subjective Subjective Date of Service: 09/27/24 Reason For Visit: psychosis and SI/ decompensated Subjective Notes: Section 12B Interim History: Pt slept through the night. She presents as very paranoid, stating the staff are talking about her and are trying to hurt her. She reports they have been harrasing her at home and she does not know who she can trust. She is suspicious of the medications. She denies SI/HI. She reports voices telling her that she is stealing and that she is a prostitute. She says she hears these voices which she thinks come from staff here in the hospital. we discussed trying risperidone insteead. sect 12b up today- this health science writer filed given risky behaviors due to paranoid delusions. Diagnostics Vital Signs (24Hr): Vital Signs - 24 hr 09/27/24 08:00 09/27/24 08:43 09/27/24 08:46 Temperature 97.9 F Pulse Rate 63 Respiratory Rate 16 Blood Pressure 109/72 109/72 109/72 Pulse Oximetry 95 Oxygen Delivery Method Room Air BMI result Body Mass Index 29.0 Labs 09/23/24 08:19 Medications Medications Current Medications Acetaminophen (Acetaminophen 325 Mg Tablet) 650 mg PO Q6H PRN PRN Reason: Headache/Pain, Scale 1-10 Al Hydroxide/Mg Hydroxide (Magnesium Hydrox/Alum Hydrox 30 Ml Oral.Susp) 30 ml PO Q6H PRN PRN Reason: Heartburn/Nausea Amlodipine Besylate (Amlodipine Besylate 10 Mg Tablet) 10 mg PO DAILY [facility]; Protocol Last Admin: 09/27/24 08:46 Dose: 10 mg Atorvastatin Calcium (Atorvastatin Calcium 40 Mg Tablet) 40 mg PO DAILY [facility] Last Admin: 09/27/24 08:47 Dose: 40 mg Calcium Carbonate (Calcium Carbonate 750 Mg Tab.Chew) 750 mg PO DAILY [facility] Last Admin: 09/27/24 09:08 Dose: Not Given Carvedilol (Carvedilol 25 Mg Tablet) 25 mg PO BID [facility]; Protocol Last Admin: 09/27/24 08:47 Dose: 25 mg Gabapentin (Gabapentin 300 Mg Capsule) 300 mg PO BID [facility] Last Admin: 09/27/24 08:46 Dose: 300 mg Levothyroxine Sodium (Levothyroxine Sodium 88 Mcg Tablet) 88 mcg PO DAILY@0600 [facility] Last Admin: 09/27/24 05:40 Dose: 88 mcg Magnesium Hydroxide (Milk Of Magnesia 30 Ml Oral.Susp) 30 ml PO DAILY PRN PRN Reason: Constipation Nicotine (Nicotine 21 Mg Patch.Td24) 21 mg TRANSDERMA DAILY PRN PRN Reason: nicotine craving Nicotine Polacrilex (Nicotine Polacrilex 2 Mg Gum) 2 mg BUCCAL Q2H PRN PRN Reason: Nicotine Cravings Olanzapine (Olanzapine 2.5 Mg Tablet) 2.5 mg PO BID PRN PRN Reason: anxiety/restlessness Olanzapine (Olanzapine 5 Mg Tablet) 5 mg PO BID [facility] Last Admin: 09/27/24 08:46 Dose: 5 mg Trazodone HCl (Trazodone Hcl 50 Mg Tablet) 150 mg PO BEDTIME [facility] Last Admin: 09/26/24 20:59 Dose: 150 mg Valsartan (Valsartan 160 Mg Tablet) 160 mg PO DAILY [facility] Last Admin: 09/27/24 08:43 Dose: 160 mg Zolpidem Tartrate (Zolpidem Tartrate 5 Mg Tablet) 10 mg PO BEDTIME [facility] Last Admin: 09/26/24 21:00 Dose: 10 mg Allergies Allergies Allergy/AdvReac Type Severity Reaction Status Date / Time morphine Allergy Unknown Verified 09/22/24 15:41 oxycodone [From Percocet] Allergy Unknown Verified 09/22/24 15:41 lactose AdvReac Diarrhea Verified 09/22/24 15:41 Assessment & Plan Assessment & Plan (1) Major depression with psychotic features: Status: Acute Code(s): F32.3 - Major depressive disorder, single episode, severe with psychotic features (2) Cognitive and behavioral changes: Status: Acute Code(s): R41.89 - Other symptoms and signs involving cognitive functions and awareness; R46.89 - Other symptoms and signs involving appearance and behavior (3) Hypothyroidism: Status: Acute Code(s): E03.9 - Hypothyroidism, unspecified Plan Patient admitted with psychosis anxiety what appears to be cognitive impairment no reported history of dementia. Untreated hypothyroidism at this point since patient has not been taking medication. Initial labs unremarkable would check head CT scan B12 folate olanzapine started 2.5 mg at bedtime consider restart antidepressant had previously been on Cymbalta. Need further history from family regarding cognitive and psychiatric history. Encourage food and fluids would be good to obtain discharge summary from [place] admission PLAN 09/27- continue current medications but will consider switch to risperidone.filed to court. will obtain more information from family in terms of timeline of paranoia and psychosis. Reason for continued inpatient stay Substantial Risk for: inability to function Time Spent With Patient Time: Total time managing care of this patient today ____ minutes.
[2024-09-27] MEDS: Zolpidem Tartrate 5 MG TABLET 10 MG PO (21:26)
[2024-09-27] MEDS: traZODone HCL 50 MG TABLET 150 MG PO (21:27)
[2024-09-27 21:35] VITALS: BP 130/59; PULSE 64
[2024-09-27] MEDS: Acetaminophen 325 MG TABLET 650 MG PO (21:45)
[2024-09-28] MEDS: OLANZapine 2.5 MG TABLET PO (02:05)
[2024-09-28] MEDS: Levothyroxine Sodium 88 MCG TABLET PO (06:46)
--- NOTE | 2024-09-28 07:46 | HO.PSYCHPN ---
Subjective Subjective Date of Service: 09/28/24 Reason For Visit: psychosis and SI/ decompensated Subjective Notes: Section 12B Interim History: Pt reports she had difficulty sleeping due to anxiety. She continues to report that everyone here is talking about her, saying that she has a sexually transmitted disease. She thinks she is going to be killed. She also thinks this commercial lines underwriter may be lying about who I am as her provider. She does note that she does not feel safe anywhere. She also reports she would not feel safe going back home and would stay in the streets. This commercial lines underwriter asked about attempting to jump off a moving car as she was very anxious and worried about her safety. She did not comment. She denies SI/HI. She is fearful and anxious thinking someone is trying to kill her and she thinks they staff and this commercial lines underwriter are aware. We did discuss switching to risperidone, which she was hesitant but open to try. Review of Systems Review of Systems Denies Mental Status Exam Mental Status Exam Narrative: Appearance: wearing hospital gown, fair hygiene, in NAD Behavior: guarded and suspicious Psychomotor: no agitation or retardation noted Speech: clear, normal rate/rhythm/volume, spontaneous TP: mostly linear TC: paranoid delusions thinking someone is trying to kill her and staff is talking about her Mood: upset Affect: fearful, guarded SI: denies HI: denies VH/AH: auditory hallucinations telling her that she is a prostitute, that she will be killed, that she has STDs Delusions: paranoid/persecutory delusions Insight/judgment: impaired x 2. Memory/cog: alert, oriented to place, month and year but not situation. She thinks this is conspiracy to kill her. Diagnostics Vital Signs (24Hr): Vital Signs - 24 hr 09/27/24 08:00 09/27/24 08:43 09/27/24 08:46 Temperature 97.9 F Pulse Rate 63 Respiratory Rate 16 Blood Pressure 109/72 109/72 109/72 Pulse Oximetry 95 Oxygen Delivery Method Room Air 09/27/24 20:00 09/27/24 21:35 Temperature 97.7 F Pulse Rate 64 64 Respiratory Rate 18 Blood Pressure 130/59 L 130/59 L Pulse Oximetry 96 Oxygen Delivery Method Room Air BMI result Body Mass Index 29.0 Labs 09/23/24 08:19 Medications Medications Current Medications Acetaminophen (Acetaminophen 325 Mg Tablet) 650 mg PO Q6H PRN PRN Reason: Headache/Pain, Scale 1-10 Last Admin: 09/27/24 21:45 Dose: 650 mg Al Hydroxide/Mg Hydroxide (Magnesium Hydrox/Alum Hydrox 30 Ml Oral.Susp) 30 ml PO Q6H PRN PRN Reason: Heartburn/Nausea Amlodipine Besylate (Amlodipine Besylate 10 Mg Tablet) 10 mg PO DAILY [facility]; Protocol Last Admin: 09/27/24 08:46 Dose: 10 mg Atorvastatin Calcium (Atorvastatin Calcium 40 Mg Tablet) 40 mg PO DAILY [facility] Last Admin: 09/27/24 08:47 Dose: 40 mg Calcium Carbonate (Calcium Carbonate 750 Mg Tab.Chew) 750 mg PO DAILY [facility] Last Admin: 09/27/24 09:08 Dose: Not Given Carvedilol (Carvedilol 25 Mg Tablet) 25 mg PO BID [facility]; Protocol Last Admin: 09/27/24 21:35 Dose: 25 mg Gabapentin (Gabapentin 300 Mg Capsule) 300 mg PO BID [facility] Last Admin: 09/27/24 21:35 Dose: 300 mg Levothyroxine Sodium (Levothyroxine Sodium 88 Mcg Tablet) 88 mcg PO DAILY@0600 [facility] Last Admin: 09/28/24 06:46 Dose: 88 mcg Magnesium Hydroxide (Milk Of Magnesia 30 Ml Oral.Susp) 30 ml PO DAILY PRN PRN Reason: Constipation Nicotine (Nicotine 21 Mg Patch.Td24) 21 mg TRANSDERMA DAILY PRN PRN Reason: nicotine craving Nicotine Polacrilex (Nicotine Polacrilex 2 Mg Gum) 2 mg BUCCAL Q2H PRN PRN Reason: Nicotine Cravings Olanzapine (Olanzapine 2.5 Mg Tablet) 2.5 mg PO BID PRN PRN Reason: anxiety/restlessness Last Admin: 09/28/24 02:05 Dose: 2.5 mg Olanzapine (Olanzapine 5 Mg Tablet) 5 mg PO BID [facility] Last Admin: 09/27/24 21:25 Dose: 5 mg Trazodone HCl (Trazodone Hcl 50 Mg Tablet) 150 mg PO BEDTIME [facility] Last Admin: 09/27/24 21:27 Dose: 150 mg Valsartan (Valsartan 160 Mg Tablet) 160 mg PO DAILY [facility] Last Admin: 09/27/24 08:43 Dose: 160 mg Zolpidem Tartrate (Zolpidem Tartrate 5 Mg Tablet) 10 mg PO BEDTIME [facility] Last Admin: 09/27/24 21:26 Dose: 10 mg Allergies Allergies Allergy/AdvReac Type Severity Reaction Status Date / Time morphine Allergy Unknown Verified 09/22/24 15:41 oxycodone [From Percocet] Allergy Unknown Verified 09/22/24 15:41 lactose AdvReac Diarrhea Verified 09/22/24 15:41 Assessment & Plan Assessment & Plan (1) Major depression with psychotic features: Status: Acute Code(s): F32.3 - Major depressive disorder, single episode, severe with psychotic features Assessment and Plan: r/o schizophrenia (2) Cognitive and behavioral changes: Status: Acute Code(s): R41.89 - Other symptoms and signs involving cognitive functions and awareness; R46.89 - Other symptoms and signs involving appearance and behavior (3) Hypothyroidism: Status: Acute Code(s): E03.9 - Hypothyroidism, unspecified Plan Patient admitted with psychosis anxiety what appears to be cognitive impairment no reported history of dementia. Untreated hypothyroidism at this point since patient has not been taking medication. Initial labs unremarkable would check head CT scan B12 folate olanzapine started 2.5 mg at bedtime consider restart antidepressant had previously been on Cymbalta. Need further history from family regarding cognitive and psychiatric history. Encourage food and fluids would be good to obtain discharge summary from [place] admission PLAN 09/27- continue current medications but will consider switch to risperidone.filed to court. will obtain more information from family in terms of timeline of paranoia and psychosis. 09/28 d/c olanzapine, start risperidone 1mg po BID. Reason for continued inpatient stay Substantial Risk for: inability to function Time Spent With Patient Time: Total time managing care of this patient today ____ minutes.
[2024-09-28 08:00] VITALS: BP 96/55; PULSE 58; TEMP 36.3; O2SAT 97
[2024-09-28] MEDS: Gabapentin 300 MG CAPSULE PO ×2 (08:39→20:39)
[2024-09-28] MEDS: OLANZapine 5 MG TABLET PO (08:40)
[2024-09-28] MEDS: Atorvastatin Calcium 40 MG TABLET PO (08:40)
[2024-09-28 08:45] VITALS: BP 96/55; PULSE 58
--- NOTE | 2024-09-28 11:31 | PC.NURSE ---
Orthostatic VS obtained Supine: BP 110/58, HR 58, O2 sat 96% Sitting: BP 117/58, HR 60, O2 sat 98% Standing: BP 122/63, HR 63, O2 sat 97% Provider made aware of findings
[2024-09-28 13:35] VITALS: BP 110/58; PULSE 58
[2024-09-28 13:36] VITALS: BP 117/58; PULSE 60
[2024-09-28 13:37] VITALS: BP 122/63; PULSE 63
[2024-09-28] MEDS: risperiDONE 1 MG TABLET PO ×2 (13:57→20:39)
[2024-09-28 20:00] VITALS: BP 136/60; PULSE 60; RESP 18; TEMP 36.5; O2SAT 98
[2024-09-28] MEDS: carvediloL 25 MG TABLET PO (20:38)
[2024-09-28] MEDS: Zolpidem Tartrate 5 MG TABLET 10 MG PO (20:39)
[2024-09-28] MEDS: traZODone HCL 100 MG TABLET PO (23:13)
[2024-09-29] VITALS (7 sets, daily range): BP systolic 114–147; BP diastolic 63–81; PULSE 55–91; RESP 16; TEMP 36.6; O2SAT 97–98
[2024-09-29] MEDS: Levothyroxine Sodium 88 MCG TABLET PO (06:24)
[2024-09-29] MEDS: Atorvastatin Calcium 40 MG TABLET PO (09:10)
[2024-09-29] MEDS: amLODIPine Besylate 5 MG TABLET PO (09:10)
[2024-09-29] MEDS: Gabapentin 300 MG CAPSULE PO ×2 (09:10→21:15)
[2024-09-29] MEDS: carvediloL 25 MG TABLET PO (09:10)
[2024-09-29] MEDS: Valsartan 160 MG TABLET PO (09:11)
[2024-09-29] MEDS: risperiDONE 1 MG TABLET PO ×2 (09:11→21:15)
--- NOTE | 2024-09-29 09:23 | HO.PSYCHPN ---
Subjective Subjective Date of Service: 09/29/24 Reason For Visit: psychosis and SI/ decompensated Subjective Notes: Conditional Voluntary Interim History: Pt continues to report hearing voices of people on the unit telling her that she is a whore, prostitute that she has STDs and that she is going to be killed. She does not know if she is being poisoned. She denies SI/HI. She also believes this writer producer is part of conspiracy. She is in her room, thinks her room is marked as she being someone dangerous and not allowed to go out, which this writer producer informed pt this is not the case. She is taking risperidone. Review of Systems Review of Systems Denies Mental Status Exam Mental Status Exam Narrative: Appearance: wearing hospital gown, fair hygiene, in NAD Behavior: guarded and suspicious Psychomotor: no agitation or retardation noted Speech: clear, normal rate/rhythm/volume, spontaneous TP: mostly linear TC: paranoid delusions thinking someone is trying to kill her and staff is talking about her Mood: upset Affect: fearful, guarded SI: denies HI: denies VH/AH: auditory hallucinations telling her that she is a prostitute, that she will be killed, that she has STDs Delusions: paranoid/persecutory delusions Insight/judgment: impaired x 2. Memory/cog: alert, oriented to place, month and year but not situation. She thinks this is conspiracy to kill her. Diagnostics Vital Signs (24Hr): Vital Signs - 24 hr 09/28/24 13:35 09/28/24 13:36 09/28/24 13:37 Temperature Pulse Rate 58 60 63 Respiratory Rate Blood Pressure 110/58 L 117/58 L 122/63 Pulse Oximetry Oxygen Delivery Method 09/28/24 20:00 09/29/24 08:00 Temperature 97.7 F 97.9 F Pulse Rate 60 91 Respiratory Rate 18 16 Blood Pressure 136/60 147/81 H Pulse Oximetry 98 98 Oxygen Delivery Method Room Air Room Air BMI result Body Mass Index 29.0 Labs 09/23/24 08:19 Medications Medications Current Medications Acetaminophen (Acetaminophen 325 Mg Tablet) 650 mg PO Q6H PRN PRN Reason: Headache/Pain, Scale 1-10 Last Admin: 09/27/24 21:45 Dose: 650 mg Al Hydroxide/Mg Hydroxide (Magnesium Hydrox/Alum Hydrox 30 Ml Oral.Susp) 30 ml PO Q6H PRN PRN Reason: Heartburn/Nausea Amlodipine Besylate (Amlodipine Besylate 5 Mg Tablet) 5 mg PO DAILY [facility]; Protocol Last Admin: 09/29/24 09:10 Dose: 5 mg Atorvastatin Calcium (Atorvastatin Calcium 40 Mg Tablet) 40 mg PO DAILY [facility] Last Admin: 09/29/24 09:10 Dose: 40 mg Calcium Carbonate (Calcium Carbonate 750 Mg Tab.Chew) 750 mg PO DAILY [facility] Last Admin: 09/29/24 09:15 Dose: Not Given Carvedilol (Carvedilol 25 Mg Tablet) 25 mg PO BID [facility]; Protocol Last Admin: 09/29/24 09:10 Dose: 25 mg Gabapentin (Gabapentin 300 Mg Capsule) 300 mg PO BID [facility] Last Admin: 09/29/24 09:10 Dose: 300 mg Levothyroxine Sodium (Levothyroxine Sodium 88 Mcg Tablet) 88 mcg PO DAILY@0600 [facility] Last Admin: 09/29/24 06:24 Dose: 88 mcg Magnesium Hydroxide (Milk Of Magnesia 30 Ml Oral.Susp) 30 ml PO DAILY PRN PRN Reason: Constipation Nicotine (Nicotine 21 Mg Patch.Td24) 21 mg TRANSDERMA DAILY PRN PRN Reason: nicotine craving Nicotine Polacrilex (Nicotine Polacrilex 2 Mg Gum) 2 mg BUCCAL Q2H PRN PRN Reason: Nicotine Cravings Olanzapine (Olanzapine 2.5 Mg Tablet) 2.5 mg PO BID PRN PRN Reason: anxiety/restlessness Last Admin: 09/28/24 02:05 Dose: 2.5 mg Risperidone (Risperidone 1 Mg Tablet) 1 mg PO BID [facility] Last Admin: 09/29/24 09:11 Dose: 1 mg Trazodone HCl (Trazodone Hcl 100 Mg Tablet) 100 mg PO BEDTIME PRN PRN Reason: sleep Last Admin: 09/28/24 23:13 Dose: 100 mg Valsartan (Valsartan 160 Mg Tablet) 160 mg PO DAILY [facility] Last Admin: 09/29/24 09:11 Dose: 160 mg Zolpidem Tartrate (Zolpidem Tartrate 5 Mg Tablet) 10 mg PO BEDTIME [facility] Last Admin: 09/28/24 20:39 Dose: 10 mg Allergies Allergies Allergy/AdvReac Type Severity Reaction Status Date / Time morphine Allergy Unknown Verified 09/22/24 15:41 oxycodone [From Percocet] Allergy Unknown Verified 09/22/24 15:41 lactose AdvReac Diarrhea Verified 09/22/24 15:41 Assessment & Plan Assessment & Plan (1) Major depression with psychotic features: Status: Acute Code(s): F32.3 - Major depressive disorder, single episode, severe with psychotic features Assessment and Plan: r/o schizophrenia (2) Cognitive and behavioral changes: Status: Acute Code(s): R41.89 - Other symptoms and signs involving cognitive functions and awareness; R46.89 - Other symptoms and signs involving appearance and behavior (3) Hypothyroidism: Status: Acute Code(s): E03.9 - Hypothyroidism, unspecified Plan Patient admitted with psychosis anxiety what appears to be cognitive impairment no reported history of dementia. Untreated hypothyroidism at this point since patient has not been taking medication. Initial labs unremarkable would check head CT scan B12 folate olanzapine started 2.5 mg at bedtime consider restart antidepressant had previously been on Cymbalta. Need further history from family regarding cognitive and psychiatric history. Encourage food and fluids would be good to obtain discharge summary from [place] admission PLAN 09/27- continue current medications but will consider switch to risperidone.filed to court. will obtain more information from family in terms of timeline of paranoia and psychosis. 09/28 d/c olanzapine, start risperidone 1mg po BID. 09/29 continue tx. Reason for continued inpatient stay Substantial Risk for: inability to function Time Spent With Patient Time: Total time managing care of this patient today ____ minutes.
--- NOTE | 2024-09-29 18:20 | PC.NURSE ---
This remote mortgage underwriter tried several times today to collect a clean catch urine and the patient did not comply with the task.
[2024-09-29] MEDS: Zolpidem Tartrate 5 MG TABLET 10 MG PO (21:15)
[2024-09-30] VITALS (7 sets, daily range): BP systolic 117–137; BP diastolic 60–72; PULSE 65–75; RESP 16–18; TEMP 36.4–36.5; O2SAT 96–98
[2024-09-30] MEDS: Levothyroxine Sodium 88 MCG TABLET PO (06:23)
[2024-09-30] MEDS: Atorvastatin Calcium 40 MG TABLET PO (08:34)
[2024-09-30] MEDS: Gabapentin 300 MG CAPSULE PO ×2 (08:34→21:12)
[2024-09-30] MEDS: Valsartan 160 MG TABLET PO (08:34)
[2024-09-30] MEDS: amLODIPine Besylate 5 MG TABLET PO (08:34)
[2024-09-30] MEDS: OLANZapine 2.5 MG TABLET PO (08:34)
[2024-09-30] MEDS: carvediloL 25 MG TABLET PO ×2 (08:34→21:12)
--- NOTE | 2024-09-30 08:46 | HO.PSYCHPN ---
Subjective Subjective Date of Service: 09/30/24 Reason For Visit: psychosis and SI/ decompensated Subjective Notes: Conditional Voluntary Interim History: 69 yo with psychotic depression recently started on risperidone- co constipation otherwise didn't want to talk with provider - met with daughter- appears guarded toward provider- Medication Compliance: Yes Side effects from medications: Yes (constipation) Attending Groups: Intermittent Review of Systems Acute medical concerns: No Mental Status Exam Mental Status Exam Patient Appearance: Unkempt Patient Orientation: Person and Place Level of Consciousness: Awake and Alert Patient Behavior: Guarded, Cooperative (minimally with this provider), Suspicious and Poor Eye Contact Mood Description: Suspicious Affect Description: Blunted Ability to Follow Directions: Fair Speech Pattern: Clear Thought Process: Intact Judgement: Poor Diagnostics Vital Signs (24Hr): Vital Signs - 24 hr 09/29/24 14:15 09/29/24 14:15 09/29/24 14:16 Temperature Pulse Rate 61 61 61 Respiratory Rate Blood Pressure 114/76 114/76 126/64 Pulse Oximetry Oxygen Delivery Method 09/29/24 14:17 09/29/24 14:18 09/29/24 14:20 Temperature Pulse Rate 61 63 63 Respiratory Rate Blood Pressure 119/65 122/63 114/69 Pulse Oximetry Oxygen Delivery Method 09/29/24 20:00 09/30/24 08:34 09/30/24 08:34 Temperature 98 F Pulse Rate 55 Respiratory Rate 16 Blood Pressure 128/67 137/67 137/67 Pulse Oximetry 97 Oxygen Delivery Method Room Air 09/30/24 08:34 Temperature Pulse Rate 75 Respiratory Rate Blood Pressure 137/67 Pulse Oximetry Oxygen Delivery Method BMI result Body Mass Index 29.0 Labs 09/23/24 08:19 Medications Medications Current Medications Acetaminophen (Acetaminophen 325 Mg Tablet) 650 mg PO Q6H PRN PRN Reason: Headache/Pain, Scale 1-10 Last Admin: 09/27/24 21:45 Dose: 650 mg Al Hydroxide/Mg Hydroxide (Magnesium Hydrox/Alum Hydrox 30 Ml Oral.Susp) 30 ml PO Q6H PRN PRN Reason: Heartburn/Nausea Amlodipine Besylate (Amlodipine Besylate 5 Mg Tablet) 5 mg PO DAILY [facility]; Protocol Last Admin: 09/30/24 08:34 Dose: 5 mg Atorvastatin Calcium (Atorvastatin Calcium 40 Mg Tablet) 40 mg PO DAILY [facility] Last Admin: 09/30/24 08:34 Dose: 40 mg Calcium Carbonate (Calcium Carbonate 750 Mg Tab.Chew) 750 mg PO DAILY [facility] Last Admin: 09/30/24 08:41 Dose: Not Given Carvedilol (Carvedilol 25 Mg Tablet) 25 mg PO BID [facility]; Protocol Last Admin: 09/30/24 08:34 Dose: 25 mg Gabapentin (Gabapentin 300 Mg Capsule) 300 mg PO BID [facility] Last Admin: 09/30/24 08:34 Dose: 300 mg Levothyroxine Sodium (Levothyroxine Sodium 88 Mcg Tablet) 88 mcg PO DAILY@0600 [facility] Last Admin: 09/30/24 06:23 Dose: 88 mcg Magnesium Hydroxide (Milk Of Magnesia 30 Ml Oral.Susp) 30 ml PO DAILY PRN PRN Reason: Constipation Nicotine (Nicotine 21 Mg Patch.Td24) 21 mg TRANSDERMA DAILY PRN PRN Reason: nicotine craving Nicotine Polacrilex (Nicotine Polacrilex 2 Mg Gum) 2 mg BUCCAL Q2H PRN PRN Reason: Nicotine Cravings Olanzapine (Olanzapine 2.5 Mg Tablet) 2.5 mg PO BID PRN PRN Reason: anxiety/restlessness Last Admin: 09/30/24 08:34 Dose: 2.5 mg Risperidone (Risperidone 1 Mg Tablet) 1 mg PO BID [facility] Last Admin: 09/29/24 21:15 Dose: 1 mg Trazodone HCl (Trazodone Hcl 100 Mg Tablet) 100 mg PO BEDTIME PRN PRN Reason: sleep Last Admin: 09/28/24 23:13 Dose: 100 mg Valsartan (Valsartan 160 Mg Tablet) 160 mg PO DAILY [facility] Last Admin: 09/30/24 08:34 Dose: 160 mg Zolpidem Tartrate (Zolpidem Tartrate 5 Mg Tablet) 10 mg PO BEDTIME [facility] Last Admin: 09/29/24 21:15 Dose: 10 mg Allergies Allergies Allergy/AdvReac Type Severity Reaction Status Date / Time morphine Allergy Unknown Verified 09/22/24 15:41 oxycodone [From Percocet] Allergy Unknown Verified 09/22/24 15:41 lactose AdvReac Diarrhea Verified 09/22/24 15:41 Assessment & Plan Assessment & Plan (1) Major depression with psychotic features: Status: Acute Code(s): F32.3 - Major depressive disorder, single episode, severe with psychotic features Assessment and Plan: r/o schizophrenia (2) Cognitive and behavioral changes: Status: Acute Code(s): R41.89 - Other symptoms and signs involving cognitive functions and awareness; R46.89 - Other symptoms and signs involving appearance and behavior (3) Hypothyroidism: Status: Acute Code(s): E03.9 - Hypothyroidism, unspecified Plan Patient admitted with psychosis anxiety what appears to be cognitive impairment no reported history of dementia. Untreated hypothyroidism at this point since patient has not been taking medication. Initial labs unremarkable would check head CT scan B12 folate olanzapine started 2.5 mg at bedtime consider restart antidepressant had previously been on Cymbalta. Need further history from family regarding cognitive and psychiatric history. Encourage food and fluids would be good to obtain discharge summary from [place] admission PLAN 09/27- continue current medications but will consider switch to risperidone.filed to court. will obtain more information from family in terms of timeline of paranoia and psychosis. 09/28 d/c olanzapine, start risperidone 1mg po BID. 09/30 started ducosate for constipation , see if patient will engage more with provider tomorrow- Patient educated on: medication risk/benefits and medical condition Informed Consent: further education needed Reason for continued inpatient stay Substantial Risk for: inability to function and rapid decompensation Time Spent With Patient Time: Total time managing care of this patient today ____ minutes.
[2024-09-30] MEDS: risperiDONE 1 MG TABLET PO ×2 (08:48→21:12)
--- NOTE | 2024-09-30 10:49 | PC.NURSE ---
Chelita declined to have her 0800 orthostatic vital signs. She was anxious, disorganized, and self-dialoguing. Will reattempt.
--- NOTE | 2024-09-30 13:37 | PC.NURSE ---
Refused morning orthostatic vital signs and Dr. Esparza notified.
--- NOTE | 2024-09-30 15:33 | PC.NURSE ---
Orthostatic vital signs as followed: 1515- lying BP 117/60, HR 65; 1518- sitting BP 127/72, HR 66; 1521 standing BP 126/67, HR 68
[2024-09-30] MEDS: Zolpidem Tartrate 5 MG TABLET 10 MG PO (21:13)
[2024-09-30] MEDS: Docusate Sodium 100 MG CAPSULE PO (21:13)
[2024-10-01] MEDS: Levothyroxine Sodium 88 MCG TABLET PO (06:29)
[2024-10-01 08:00] VITALS: BP 150/71; PULSE 83; RESP 16; TEMP 36.4; O2SAT 97
[2024-10-01 09:07] VITALS: BP 150/71; PULSE 83
[2024-10-01] MEDS: amLODIPine Besylate 5 MG TABLET PO (09:07)
[2024-10-01] MEDS: carvediloL 25 MG TABLET PO ×2 (09:07→21:06)
[2024-10-01 09:08] VITALS: BP 150/71
[2024-10-01] MEDS: risperiDONE 1 MG TABLET PO ×2 (09:08→21:07)
[2024-10-01] MEDS: Docusate Sodium 100 MG CAPSULE PO ×2 (09:08→23:52)
[2024-10-01] MEDS: Atorvastatin Calcium 40 MG TABLET PO (09:08)
[2024-10-01] MEDS: Valsartan 160 MG TABLET PO (09:08)
[2024-10-01] MEDS: Gabapentin 300 MG CAPSULE PO ×2 (09:08→21:07)
--- NOTE | 2024-10-01 09:47 | HO.PSYCHPN ---
Subjective Subjective Date of Service: 10/01/24 Reason For Visit: psychosis and SI/ decompensated Subjective Notes: Conditional Voluntary Medical Problems Affecting Mental Status: No Interim History: 69 with psychotic depression- paranoid and guarded- but opened up a bit at first with diamond die polisher through remote- clearly at end felt suspicious re risperidone trial and considering her concerns real- Sleep ok, energy low, denies other s/e of medication and not clear it has made much dent in underlying paranoid ideation- Medication Compliance: Yes Side effects from medications: Yes (fatigue from risperidone) Attending Groups: Intermittent Review of Systems Acute medical concerns: No Medical Review of Systems: unchanged Mental Status Exam Mental Status Exam Patient Appearance: Appropriate (dressed in ayla) Patient Orientation: Person, Place, Time and Situation Level of Consciousness: Awake and Alert Patient Behavior: Appropriate, Guarded (at times), Cooperative and Good Eye Contact Mood Description: Constricted Affect Description: Blunted Ability to Follow Directions: Fair Speech Pattern: Perseverating Hallucinations: None Delusions: Present Thought Process: Intact Thought Content: positive for Goal Oriented Depressive Symptoms: Increased Anxiety Judgement: Fair Diagnostics Vital Signs (24Hr): Vital Signs - 24 hr 09/30/24 15:15 09/30/24 15:18 09/30/24 15:21 Temperature Pulse Rate 65 66 68 Respiratory Rate Blood Pressure 117/60 127/72 126/67 Pulse Oximetry Oxygen Delivery Method 09/30/24 20:00 09/30/24 21:12 10/01/24 09:07 Temperature 97.5 F Pulse Rate 65 65 Respiratory Rate 16 Blood Pressure 137/71 137/71 150/71 H Pulse Oximetry 96 Oxygen Delivery Method Room Air 10/01/24 09:07 10/01/24 09:08 Temperature Pulse Rate 83 Respiratory Rate Blood Pressure 150/71 H 150/71 H Pulse Oximetry Oxygen Delivery Method BMI result Body Mass Index 29.0 Labs 09/23/24 08:19 Medications Medications Current Medications Acetaminophen (Acetaminophen 325 Mg Tablet) 650 mg PO Q6H PRN PRN Reason: Headache/Pain, Scale 1-10 Last Admin: 09/27/24 21:45 Dose: 650 mg Al Hydroxide/Mg Hydroxide (Magnesium Hydrox/Alum Hydrox 30 Ml Oral.Susp) 30 ml PO Q6H PRN PRN Reason: Heartburn/Nausea Amlodipine Besylate (Amlodipine Besylate 5 Mg Tablet) 5 mg PO DAILY [facility]; Protocol Last Admin: 10/01/24 09:07 Dose: 5 mg Atorvastatin Calcium (Atorvastatin Calcium 40 Mg Tablet) 40 mg PO DAILY [facility] Last Admin: 10/01/24 09:08 Dose: 40 mg Calcium Carbonate (Calcium Carbonate 750 Mg Tab.Chew) 750 mg PO DAILY [facility] Last Admin: 10/01/24 09:12 Dose: Not Given Carvedilol (Carvedilol 25 Mg Tablet) 25 mg PO BID [facility]; Protocol Last Admin: 10/01/24 09:07 Dose: 25 mg Docusate Sodium (Docusate Sodium 100 Mg Capsule) 100 mg PO BID [facility] Last Admin: 10/01/24 09:08 Dose: 100 mg Gabapentin (Gabapentin 300 Mg Capsule) 300 mg PO BID [facility] Last Admin: 10/01/24 09:08 Dose: 300 mg Levothyroxine Sodium (Levothyroxine Sodium 88 Mcg Tablet) 88 mcg PO DAILY@0600 [facility] Last Admin: 10/01/24 06:29 Dose: 88 mcg Magnesium Hydroxide (Milk Of Magnesia 30 Ml Oral.Susp) 30 ml PO DAILY PRN PRN Reason: Constipation Nicotine (Nicotine 21 Mg Patch.Td24) 21 mg TRANSDERMA DAILY PRN PRN Reason: nicotine craving Nicotine Polacrilex (Nicotine Polacrilex 2 Mg Gum) 2 mg BUCCAL Q2H PRN PRN Reason: Nicotine Cravings Olanzapine (Olanzapine 2.5 Mg Tablet) 2.5 mg PO BID PRN PRN Reason: anxiety/restlessness Last Admin: 09/30/24 08:34 Dose: 2.5 mg Risperidone (Risperidone 1 Mg Tablet) 1 mg PO BID [facility] Last Admin: 10/01/24 09:08 Dose: 1 mg Trazodone HCl (Trazodone Hcl 100 Mg Tablet) 100 mg PO BEDTIME PRN PRN Reason: sleep Last Admin: 09/28/24 23:13 Dose: 100 mg Valsartan (Valsartan 160 Mg Tablet) 160 mg PO DAILY [facility] Last Admin: 10/01/24 09:08 Dose: 160 mg Zolpidem Tartrate (Zolpidem Tartrate 5 Mg Tablet) 10 mg PO BEDTIME [facility] Last Admin: 09/30/24 21:13 Dose: 10 mg Allergies Allergies Allergy/AdvReac Type Severity Reaction Status Date / Time morphine Allergy Unknown Verified 09/22/24 15:41 oxycodone [From Percocet] Allergy Unknown Verified 09/22/24 15:41 lactose AdvReac Diarrhea Verified 09/22/24 15:41 Assessment & Plan Assessment & Plan (1) Major depression with psychotic features: Status: Acute Code(s): F32.3 - Major depressive disorder, single episode, severe with psychotic features Assessment and Plan: r/o schizophrenia (2) Cognitive and behavioral changes: Status: Acute Code(s): R41.89 - Other symptoms and signs involving cognitive functions and awareness; R46.89 - Other symptoms and signs involving appearance and behavior (3) Hypothyroidism: Status: Acute Code(s): E03.9 - Hypothyroidism, unspecified Plan Patient admitted with psychosis anxiety what appears to be cognitive impairment no reported history of dementia. Untreated hypothyroidism at this point since patient has not been taking medication. Initial labs unremarkable would check head CT scan B12 folate olanzapine started 2.5 mg at bedtime consider restart antidepressant had previously been on Cymbalta. Need further history from family regarding cognitive and psychiatric history. Encourage food and fluids would be good to obtain discharge summary from [place] admission PLAN 09/27- continue current medications but will consider switch to risperidone.filed to court. will obtain more information from family in terms of timeline of paranoia and psychosis. 09/28 d/c olanzapine, start risperidone 1mg po BID. 09/30 started ducosate for constipation , see if patient will engage more with provider tomorrow- 10/01 engaged a bit more today spoke wiht provider and post adoption coordinator- clearly underlying PI=- co fatigue from risperidone Patient educated on: medication risk/benefits Informed Consent: understands Reason for continued inpatient stay Substantial Risk for: inability to function and rapid decompensation Time Spent With Patient Time: Total time managing care of this patient today ____ minutes.
[2024-10-01 16:00] VITALS: BP 123/65; PULSE 62
[2024-10-01] MEDS: Acetaminophen 325 MG TABLET 650 MG PO ×2 (17:25→23:29)
[2024-10-01 20:00] VITALS: BP 111/58; PULSE 62; RESP 16; TEMP 36.4; O2SAT 97
[2024-10-01] MEDS: Zolpidem Tartrate 5 MG TABLET 10 MG PO (21:07)
[2024-10-01] MEDS: OLANZapine 2.5 MG TABLET PO (23:29)
[2024-10-01] MEDS: traZODone HCL 100 MG TABLET PO (23:29)
[2024-10-01] MEDS: Sennosides 8.6 MG TABLET PO (23:52)
[2024-10-01 23:56] VITALS: BP 111/59; PULSE 70
[2024-10-02] MEDS: Levothyroxine Sodium 88 MCG TABLET PO (06:22)
[2024-10-02 08:00] VITALS: BP 111/53; PULSE 65; RESP 16; TEMP 36.6; O2SAT 97
--- NOTE | 2024-10-02 08:51 | HO.PSYCHPN ---
Subjective Subjective Date of Service: 10/02/24 Reason For Visit: psychosis and SI/ decompensated Subjective Notes: Section 7 Interim History: Pt slept through the night. She continues to present with AH of people talking about her and paranoid delusions thinking that people are trying to kill her. She does report some improvement in threats and although she denies these are voices, pt reports staff is talking less about her. She has been taking medications as prescribed. She reports feeling somewhat sleepy during the day, we discussed changing risperidone dose to bedtime. Review of Systems Review of Systems Denies Mental Status Exam Mental Status Exam Narrative: Appearance: wearing hospital gown, fair hygiene, in NAD Behavior: guarded and suspicious Psychomotor: no agitation or retardation noted Speech: clear, normal rate/rhythm/volume, spontaneous TP: mostly linear TC: paranoid delusions thinking someone is trying to kill her and staff is talking about her Mood: upset Affect: fearful, guarded SI: denies HI: denies VH/AH: auditory hallucinations telling her that she is a prostitute, that she will be killed, that she has STDs Delusions: paranoid/persecutory delusions Insight/judgment: impaired x 2. Memory/cog: alert, oriented to place, month and year but not situation. She thinks this is conspiracy to kill her. Diagnostics Vital Signs (24Hr): Vital Signs - 24 hr 10/01/24 09:07 10/01/24 09:07 10/01/24 09:08 Temperature Pulse Rate 83 Respiratory Rate Blood Pressure 150/71 H 150/71 H 150/71 H Pulse Oximetry Oxygen Delivery Method 10/01/24 16:00 10/01/24 20:00 10/01/24 23:56 Temperature 97.5 F Pulse Rate 62 62 70 Respiratory Rate 16 Blood Pressure 123/65 111/58 L 111/59 L Pulse Oximetry 97 Oxygen Delivery Method Room Air 10/02/24 08:00 Temperature 97.8 F Pulse Rate 65 Respiratory Rate 16 Blood Pressure 111/53 L Pulse Oximetry 97 Oxygen Delivery Method Room Air BMI result Body Mass Index 29.0 Labs 09/23/24 08:19 Medications Medications Current Medications Acetaminophen (Acetaminophen 325 Mg Tablet) 650 mg PO Q6H PRN PRN Reason: Headache/Pain, Scale 1-10 Last Admin: 10/01/24 23:29 Dose: 650 mg Al Hydroxide/Mg Hydroxide (Magnesium Hydrox/Alum Hydrox 30 Ml Oral.Susp) 30 ml PO Q6H PRN PRN Reason: Heartburn/Nausea Amlodipine Besylate (Amlodipine Besylate 5 Mg Tablet) 5 mg PO DAILY [facility]; Protocol Last Admin: 10/01/24 09:07 Dose: 5 mg Atorvastatin Calcium (Atorvastatin Calcium 40 Mg Tablet) 40 mg PO DAILY [facility] Last Admin: 10/01/24 09:08 Dose: 40 mg Calcium Carbonate (Calcium Carbonate 750 Mg Tab.Chew) 750 mg PO DAILY [facility] Last Admin: 10/01/24 09:12 Dose: Not Given Carvedilol (Carvedilol 25 Mg Tablet) 25 mg PO BID [facility]; Protocol Last Admin: 10/01/24 21:06 Dose: 25 mg Docusate Sodium (Docusate Sodium 100 Mg Capsule) 100 mg PO BID [facility] Last Admin: 10/01/24 23:52 Dose: 100 mg Gabapentin (Gabapentin 300 Mg Capsule) 300 mg PO BID [facility] Last Admin: 10/01/24 21:07 Dose: 300 mg Levothyroxine Sodium (Levothyroxine Sodium 88 Mcg Tablet) 88 mcg PO DAILY@0600 [facility] Last Admin: 10/02/24 06:22 Dose: 88 mcg Magnesium Hydroxide (Milk Of Magnesia 30 Ml Oral.Susp) 30 ml PO DAILY PRN PRN Reason: Constipation Nicotine (Nicotine 21 Mg Patch.Td24) 21 mg TRANSDERMA DAILY PRN PRN Reason: nicotine craving Nicotine Polacrilex (Nicotine Polacrilex 2 Mg Gum) 2 mg BUCCAL Q2H PRN PRN Reason: Nicotine Cravings Olanzapine (Olanzapine 2.5 Mg Tablet) 2.5 mg PO BID PRN PRN Reason: anxiety/restlessness Last Admin: 10/01/24 23:29 Dose: 2.5 mg Risperidone (Risperidone 1 Mg Tablet) 1 mg PO BID [facility] Last Admin: 10/01/24 21:07 Dose: 1 mg Senna (Sennosides 8.6 Mg Tablet) 8.6 mg PO BEDTIME PRN PRN Reason: Constipation Last Admin: 10/01/24 23:52 Dose: 8.6 mg Trazodone HCl (Trazodone Hcl 100 Mg Tablet) 100 mg PO BEDTIME PRN PRN Reason: sleep Last Admin: 10/01/24 23:29 Dose: 100 mg Valsartan (Valsartan 160 Mg Tablet) 160 mg PO DAILY [facility] Last Admin: 10/01/24 09:08 Dose: 160 mg Zolpidem Tartrate (Zolpidem Tartrate 5 Mg Tablet) 10 mg PO BEDTIME [facility] Last Admin: 10/01/24 21:07 Dose: 10 mg Allergies Allergies Allergy/AdvReac Type Severity Reaction Status Date / Time morphine Allergy Unknown Verified 09/22/24 15:41 oxycodone [From Percocet] Allergy Unknown Verified 09/22/24 15:41 lactose AdvReac Diarrhea Verified 09/22/24 15:41 Assessment & Plan Assessment & Plan (1) Major depression with psychotic features: Status: Acute Code(s): F32.3 - Major depressive disorder, single episode, severe with psychotic features Assessment and Plan: r/o schizophrenia (2) Cognitive and behavioral changes: Status: Acute Code(s): R41.89 - Other symptoms and signs involving cognitive functions and awareness; R46.89 - Other symptoms and signs involving appearance and behavior (3) Hypothyroidism: Status: Acute Code(s): E03.9 - Hypothyroidism, unspecified Plan Patient admitted with psychosis anxiety what appears to be cognitive impairment no reported history of dementia. Untreated hypothyroidism at this point since patient has not been taking medication. Initial labs unremarkable would check head CT scan B12 folate olanzapine started 2.5 mg at bedtime consider restart antidepressant had previously been on Cymbalta. Need further history from family regarding cognitive and psychiatric history. Encourage food and fluids would be good to obtain discharge summary from [place] admission PLAN 09/27- continue current medications but will consider switch to risperidone.filed to court. will obtain more information from family in terms of timeline of paranoia and psychosis. 09/28 d/c olanzapine, start risperidone 1mg po BID. 09/30 started ducosate for constipation , see if patient will engage more with provider tomorrow- 10/02 will change risperidone to 2mg po qhs. continue to present as paranoid, court pending tomorrow. Reason for continued inpatient stay Substantial Risk for: harm to self, harm to others and inability to function Time Spent With Patient Time: Total time managing care of this patient today ____ minutes.
[2024-10-02] MEDS: Docusate Sodium 100 MG CAPSULE PO (09:08)
[2024-10-02] MEDS: carvediloL 25 MG TABLET PO ×2 (09:08→21:08)
[2024-10-02] MEDS: Gabapentin 300 MG CAPSULE PO ×2 (09:08→21:08)
[2024-10-02] MEDS: Valsartan 160 MG TABLET PO (09:08)
[2024-10-02] MEDS: risperiDONE 1 MG TABLET PO ×2 (09:08→21:07)
[2024-10-02] MEDS: Atorvastatin Calcium 40 MG TABLET PO (09:09)
[2024-10-02] MEDS: amLODIPine Besylate 5 MG TABLET PO (09:09)
[2024-10-02 20:00] VITALS: BP 122/58; PULSE 63; RESP 16; TEMP 36.1; O2SAT 97
[2024-10-02 21:08] VITALS: BP 122/58; PULSE 63
[2024-10-02] MEDS: Zolpidem Tartrate 5 MG TABLET 10 MG PO (21:08)
[2024-10-03] MEDS: Levothyroxine Sodium 88 MCG TABLET PO (06:22)
[2024-10-03 08:01] VITALS: BP 118/84; PULSE 70; RESP 18; TEMP 36.6; O2SAT 100
[2024-10-03] MEDS: Gabapentin 300 MG CAPSULE PO ×2 (08:02→21:28)
[2024-10-03] MEDS: Calcium Carbonate 750 MG TAB.CHEW PO (08:02)
[2024-10-03] MEDS: Valsartan 160 MG TABLET PO (08:03)
[2024-10-03] MEDS: carvediloL 25 MG TABLET PO ×2 (08:03→21:28)
[2024-10-03] MEDS: Docusate Sodium 100 MG CAPSULE PO (08:03)
[2024-10-03] MEDS: Atorvastatin Calcium 40 MG TABLET PO (08:03)
[2024-10-03] MEDS: amLODIPine Besylate 5 MG TABLET PO (08:04)
--- NOTE | 2024-10-03 09:15 | HO.PSYCHPN ---
Subjective Subjective Date of Service: 10/03/24 Reason For Visit: psychosis and SI/ decompensated Subjective Notes: Conditional Voluntary Interim History: Pt slept through the night. She continues to present with paranoid ideas thinking staff here are talking about her. She is slightly less paranoid in that she has agreed to leave her room despite thinking that she is not allowed to do so. She reports staff are talking about her saying she smells and has bad breath. We had court scheduled for today but pt finally agreed to signs CV and continue tx. Review of Systems Review of Systems Denies Mental Status Exam Mental Status Exam Narrative: Appearance: wearing hospital gown, fair hygiene, in NAD Behavior: guarded and suspicious Psychomotor: no agitation or retardation noted Speech: clear, normal rate/rhythm/volume, spontaneous TP: mostly linear TC: paranoid delusions thinking someone is trying to kill her and staff is talking about her Mood: upset Affect: fearful, guarded SI: denies HI: denies VH/AH: auditory hallucinations telling her that she is a prostitute, that she will be killed, that she has STDs Delusions: paranoid/persecutory delusions Insight/judgment: impaired x 2. Memory/cog: alert, oriented to place, month and year but not situation. She thinks this is conspiracy to kill her. Diagnostics Vital Signs (24Hr): Vital Signs - 24 hr 10/02/24 20:00 10/02/24 21:08 10/03/24 08:01 Temperature 97 F 97.9 F Pulse Rate 63 63 70 Respiratory Rate 16 18 Blood Pressure 122/58 L 122/58 L 118/84 Pulse Oximetry 97 100 Oxygen Delivery Method Room Air Room Air BMI result Body Mass Index 29.0 Labs 09/23/24 08:19 Medications Medications Current Medications Acetaminophen (Acetaminophen 325 Mg Tablet) 650 mg PO Q6H PRN PRN Reason: Headache/Pain, Scale 1-10 Last Admin: 10/01/24 23:29 Dose: 650 mg Al Hydroxide/Mg Hydroxide (Magnesium Hydrox/Alum Hydrox 30 Ml Oral.Susp) 30 ml PO Q6H PRN PRN Reason: Heartburn/Nausea Amlodipine Besylate (Amlodipine Besylate 5 Mg Tablet) 5 mg PO DAILY [facility]; Protocol Last Admin: 10/03/24 08:04 Dose: 5 mg Atorvastatin Calcium (Atorvastatin Calcium 40 Mg Tablet) 40 mg PO DAILY [facility] Last Admin: 10/03/24 08:03 Dose: 40 mg Calcium Carbonate (Calcium Carbonate 750 Mg Tab.Chew) 750 mg PO DAILY [facility] Last Admin: 10/03/24 08:02 Dose: 750 mg Carvedilol (Carvedilol 25 Mg Tablet) 25 mg PO BID [facility]; Protocol Last Admin: 10/03/24 08:03 Dose: 25 mg Docusate Sodium (Docusate Sodium 100 Mg Capsule) 100 mg PO BID [facility] Last Admin: 10/03/24 08:03 Dose: 100 mg Gabapentin (Gabapentin 300 Mg Capsule) 300 mg PO BID [facility] Last Admin: 10/03/24 08:02 Dose: 300 mg Levothyroxine Sodium (Levothyroxine Sodium 88 Mcg Tablet) 88 mcg PO DAILY@0600 [facility] Last Admin: 10/03/24 06:22 Dose: 88 mcg Magnesium Hydroxide (Milk Of Magnesia 30 Ml Oral.Susp) 30 ml PO DAILY PRN PRN Reason: Constipation Nicotine (Nicotine 21 Mg Patch.Td24) 21 mg TRANSDERMA DAILY PRN PRN Reason: nicotine craving Nicotine Polacrilex (Nicotine Polacrilex 2 Mg Gum) 2 mg BUCCAL Q2H PRN PRN Reason: Nicotine Cravings Olanzapine (Olanzapine 2.5 Mg Tablet) 2.5 mg PO BID PRN PRN Reason: anxiety/restlessness Last Admin: 10/01/24 23:29 Dose: 2.5 mg Risperidone (Risperidone 2 Mg Tablet) 2 mg PO BEDTIME [facility] Senna (Sennosides 8.6 Mg Tablet) 8.6 mg PO BEDTIME PRN PRN Reason: Constipation Last Admin: 10/01/24 23:52 Dose: 8.6 mg Senna/Docusate Sodium (Sennosides/Docusate Sodium Tablet) 1 tab PO BID [facility] Trazodone HCl (Trazodone Hcl 100 Mg Tablet) 100 mg PO BEDTIME PRN PRN Reason: sleep Last Admin: 10/01/24 23:29 Dose: 100 mg Valsartan (Valsartan 160 Mg Tablet) 160 mg PO DAILY [facility] Last Admin: 10/03/24 08:03 Dose: 160 mg Zolpidem Tartrate (Zolpidem Tartrate 5 Mg Tablet) 10 mg PO BEDTIME [facility] Last Admin: 10/02/24 21:08 Dose: 10 mg Allergies Allergies Allergy/AdvReac Type Severity Reaction Status Date / Time morphine Allergy Unknown Verified 09/22/24 15:41 oxycodone [From Percocet] Allergy Unknown Verified 09/22/24 15:41 lactose AdvReac Diarrhea Verified 09/22/24 15:41 Assessment & Plan Assessment & Plan (1) Schizoaffective disorder: Status: Acute Code(s): F25.9 - Schizoaffective disorder, unspecified (2) Cognitive and behavioral changes: Status: Acute Code(s): R41.89 - Other symptoms and signs involving cognitive functions and awareness; R46.89 - Other symptoms and signs involving appearance and behavior (3) Hypothyroidism: Status: Acute Code(s): E03.9 - Hypothyroidism, unspecified Plan Patient admitted with psychosis anxiety what appears to be cognitive impairment no reported history of dementia. Untreated hypothyroidism at this point since patient has not been taking medication. Initial labs unremarkable would check head CT scan B12 folate olanzapine started 2.5 mg at bedtime consider restart antidepressant had previously been on Cymbalta. Need further history from family regarding cognitive and psychiatric history. Encourage food and fluids would be good to obtain discharge summary from [place] admission PLAN 09/27- continue current medications but will consider switch to risperidone.filed to court. will obtain more information from family in terms of timeline of paranoia and psychosis. 09/28 d/c olanzapine, start risperidone 1mg po BID. 09/30 started ducosate for constipation , see if patient will engage more with provider tomorrow- 10/02 will change risperidone to 2mg po qhs. continue to present as paranoid, court pending tomorrow. 10/03 pt signed CV. continue treatment. Reason for continued inpatient stay Substantial Risk for: harm to self and inability to function Time Spent With Patient Time: Total time managing care of this patient today ____ minutes.
[2024-10-03] MEDS: Sennosides/Docusate Sodium TABLET 1 TAB PO ×2 (09:51→21:28)
--- NOTE | 2024-10-03 15:32 | PC.NURSE ---
Patient refusing to shower with staff monitoring. OK with [facility] if patient's daughter comes in to shower her. Patient still refusing to give us a urine sample for the lab.
[2024-10-03 20:00] VITALS: BP 111/65; PULSE 65; RESP 18; TEMP 36.7; O2SAT 97
[2024-10-03] MEDS: Zolpidem Tartrate 5 MG TABLET PO (21:28)
[2024-10-03] MEDS: risperiDONE 2 MG TABLET PO (21:28)
[2024-10-03] MEDS: traZODone HCL 50 MG TABLET PO (21:35)
[2024-10-04] MEDS: Levothyroxine Sodium 88 MCG TABLET PO (06:11)
[2024-10-04 08:00] VITALS: BP 146/72; PULSE 64; RESP 16; TEMP 36.6; O2SAT 96
[2024-10-04] MEDS: Calcium Carbonate 750 MG TAB.CHEW PO (08:47)
[2024-10-04] MEDS: amLODIPine Besylate 5 MG TABLET PO (08:47)
[2024-10-04] MEDS: Gabapentin 300 MG CAPSULE PO ×2 (08:47→21:24)
[2024-10-04] MEDS: Valsartan 160 MG TABLET PO (08:48)
[2024-10-04] MEDS: carvediloL 25 MG TABLET PO ×2 (08:48→21:24)
[2024-10-04] MEDS: Atorvastatin Calcium 40 MG TABLET PO (08:48)
[2024-10-04 20:00] VITALS: BP 128/62; PULSE 63; TEMP 36.3; O2SAT 95
--- NOTE | 2024-10-04 20:39 | HO.PSYCHPN ---
Subjective Subjective Date of Service: 10/04/24 Reason For Visit: psychosis and SI/ decompensated Subjective Notes: Conditional Voluntary Interim History: Pt slept through the night. Pt has been more visible. However, continues to report that staff here are trying to harm her and others are talking about her. She denies SI/HI. She believes we are recording her with our phones. She also thinks we are paying other pts to harass her Review of Systems Review of Systems Denies Mental Status Exam Mental Status Exam Narrative: Appearance: wearing hospital gown, fair hygiene, in NAD Behavior: guarded and suspicious Psychomotor: no agitation or retardation noted Speech: clear, normal rate/rhythm/volume, spontaneous TP: mostly linear TC: paranoid delusions thinking someone is trying to kill her and staff is talking about her Mood: upset Affect: fearful, guarded SI: denies HI: denies VH/AH: auditory hallucinations telling her that she is a prostitute, that she will be killed, that she has STDs Delusions: paranoid/persecutory delusions Insight/judgment: impaired x 2. Memory/cog: alert, oriented to place, month and year but not situation. She thinks this is conspiracy to kill her. Diagnostics Vital Signs (24Hr): Vital Signs - 24 hr 10/04/24 08:00 10/04/24 20:00 Temperature 97.9 F 97.3 F Pulse Rate 64 63 Respiratory Rate 16 Blood Pressure 146/72 H 128/62 Pulse Oximetry 96 95 Oxygen Delivery Method Room Air Room Air BMI result Body Mass Index 29.0 Labs 09/23/24 08:19 Medications Medications Current Medications Acetaminophen (Acetaminophen 325 Mg Tablet) 650 mg PO Q6H PRN PRN Reason: Headache/Pain, Scale 1-10 Last Admin: 10/01/24 23:29 Dose: 650 mg Al Hydroxide/Mg Hydroxide (Magnesium Hydrox/Alum Hydrox 30 Ml Oral.Susp) 30 ml PO Q6H PRN PRN Reason: Heartburn/Nausea Amlodipine Besylate (Amlodipine Besylate 5 Mg Tablet) 5 mg PO DAILY [facility]; Protocol Last Admin: 10/04/24 08:47 Dose: 5 mg Atorvastatin Calcium (Atorvastatin Calcium 40 Mg Tablet) 40 mg PO DAILY [facility] Last Admin: 10/04/24 08:48 Dose: 40 mg Calcium Carbonate (Calcium Carbonate 750 Mg Tab.Chew) 750 mg PO DAILY [facility] Last Admin: 10/04/24 08:47 Dose: 750 mg Carvedilol (Carvedilol 25 Mg Tablet) 25 mg PO BID [facility]; Protocol Last Admin: 10/04/24 08:48 Dose: 25 mg Gabapentin (Gabapentin 300 Mg Capsule) 300 mg PO BID [facility] Last Admin: 10/04/24 08:47 Dose: 300 mg Levothyroxine Sodium (Levothyroxine Sodium 88 Mcg Tablet) 88 mcg PO DAILY@0600 [facility] Last Admin: 10/04/24 06:11 Dose: 88 mcg Magnesium Hydroxide (Milk Of Magnesia 30 Ml Oral.Susp) 30 ml PO DAILY PRN PRN Reason: Constipation Nicotine (Nicotine 21 Mg Patch.Td24) 21 mg TRANSDERMA DAILY PRN PRN Reason: nicotine craving Nicotine Polacrilex (Nicotine Polacrilex 2 Mg Gum) 2 mg BUCCAL Q2H PRN PRN Reason: Nicotine Cravings Olanzapine (Olanzapine 2.5 Mg Tablet) 2.5 mg PO BID PRN PRN Reason: anxiety/restlessness Last Admin: 10/01/24 23:29 Dose: 2.5 mg Polyethylene Glycol (Polyethylene Glycol 3350 17 Gm Powd.Pack) 17 gm PO DAILY PRN PRN Reason: Constipation Risperidone (Risperidone 2 Mg Tablet) 2 mg PO BEDTIME [facility] Last Admin: 10/03/24 21:28 Dose: 2 mg Senna (Sennosides 8.6 Mg Tablet) 8.6 mg PO BEDTIME PRN PRN Reason: Constipation Last Admin: 10/01/24 23:52 Dose: 8.6 mg Senna/Docusate Sodium (Sennosides/Docusate Sodium Tablet) 1 tab PO BID [facility] Last Admin: 10/04/24 08:51 Dose: Not Given Trazodone HCl (Trazodone Hcl 50 Mg Tablet) 50 mg PO BEDTIME PRN PRN Reason: sleep Last Admin: 10/03/24 21:35 Dose: 50 mg Valsartan (Valsartan 160 Mg Tablet) 160 mg PO DAILY [facility] Last Admin: 10/04/24 08:48 Dose: 160 mg Zolpidem Tartrate (Zolpidem Tartrate 5 Mg Tablet) 5 mg PO BEDTIME [facility] Last Admin: 10/03/24 21:28 Dose: 5 mg Allergies Allergies Allergy/AdvReac Type Severity Reaction Status Date / Time morphine Allergy Unknown Verified 09/22/24 15:41 oxycodone (From Percocet) Allergy Unknown Verified 09/22/24 15:41 lactose AdvReac Diarrhea Verified 09/22/24 15:41 Assessment & Plan Assessment & Plan (1) Schizoaffective disorder: Status: Acute Code(s): F25.9 - Schizoaffective disorder, unspecified (2) Cognitive and behavioral changes: Status: Acute Code(s): R41.89 - Other symptoms and signs involving cognitive functions and awareness; R46.89 - Other symptoms and signs involving appearance and behavior (3) Hypothyroidism: Status: Acute Code(s): E03.9 - Hypothyroidism, unspecified Plan Patient admitted with psychosis anxiety what appears to be cognitive impairment no reported history of dementia. Untreated hypothyroidism at this point since patient has not been taking medication. Initial labs unremarkable would check head CT scan B12 folate olanzapine started 2.5 mg at bedtime consider restart antidepressant had previously been on Cymbalta. Need further history from family regarding cognitive and psychiatric history. Encourage food and fluids would be good to obtain discharge summary from [place] admission PLAN 09/27- continue current medications but will consider switch to risperidone.filed to court. will obtain more information from family in terms of timeline of paranoia and psychosis. 09/28 d/c olanzapine, start risperidone 1mg po BID. 09/30 started ducosate for constipation , see if patient will engage more with provider tomorrow- 10/02 will change risperidone to 2mg po qhs. continue to present as paranoid, court pending tomorrow. 10/03 pt signed CV. continue treatment. 10/04 continue tx. Reason for continued inpatient stay Substantial Risk for: inability to function Time Spent With Patient Time: Total time managing care of this patient today ____ minutes.
[2024-10-04] MEDS: Zolpidem Tartrate 5 MG TABLET PO (21:25)
[2024-10-04] MEDS: risperiDONE 2 MG TABLET PO (21:25)
[2024-10-04] MEDS: traZODone HCL 50 MG TABLET PO (21:30)
[2024-10-04] MEDS: OLANZapine 2.5 MG TABLET PO (22:46)
[2024-10-04] MEDS: Acetaminophen 325 MG TABLET 650 MG PO (23:35)
[2024-10-05] MEDS: Levothyroxine Sodium 88 MCG TABLET PO (05:57)
[2024-10-05 08:00] VITALS: BP 123/75; PULSE 68; RESP 116; TEMP 36.4; O2SAT 97
[2024-10-05] MEDS: Gabapentin 300 MG CAPSULE PO ×2 (08:24→21:08)
[2024-10-05] MEDS: Valsartan 160 MG TABLET PO (08:24)
[2024-10-05] MEDS: Atorvastatin Calcium 40 MG TABLET PO (08:24)
[2024-10-05] MEDS: amLODIPine Besylate 5 MG TABLET PO (08:24)
[2024-10-05] MEDS: carvediloL 25 MG TABLET PO ×2 (08:25→21:08)
[2024-10-05 13:46] VITALS: BMI 29.5
[2024-10-05 20:00] VITALS: BP 140/64; PULSE 71; RESP 16; TEMP 36.4; O2SAT 97
[2024-10-05] MEDS: Zolpidem Tartrate 5 MG TABLET 10 MG PO (21:08)
[2024-10-05] MEDS: traZODone HCL 50 MG TABLET PO (21:08)
[2024-10-05] MEDS: risperiDONE 2 MG TABLET PO (21:08)
[2024-10-05] MEDS: Acetaminophen 325 MG TABLET 650 MG PO (21:09)
--- NOTE | 2024-10-05 21:40 | P.PNPSI_ITS ---
Subjective Subjective Date of Service: 10/05/24 Reason For Visit: psychosis and SI/ decompensated Subjective Notes: Conditional Voluntary and 3 Day Interim History: Pt had some difficulty sleeping through the night with lowered dose of ambien. Pt expressed wish to leave unit as soon as possible. She was offered 3 day notice but due to paranoia reports she does not want to sign any other document. She believes she is the only pt who is being asked to sign papers and this is part of conspiracy to harm her. She believes staff are talking about her, saying she has STDs and that she smells. She believes this technical writer included has made these comments about her. She is slightly better in that she gets out of her room, which before she thought she was not able to do or otherwise would be killed. She denied SI/HI. She is taking medication as prescribed. we discussed about increasing risperidone 1mg po daily and continue 2mg po qhs. Review of Systems Review of Systems Denies Mental Status Exam Mental Status Exam Narrative: Appearance: wearing hospital gown, fair hygiene, in NAD Behavior: guarded and suspicious Psychomotor: no agitation or retardation noted Speech: clear, normal rate/rhythm/volume, spontaneous TP: mostly linear TC: paranoid delusions thinking someone is trying to kill her and staff is talking about her Mood: upset Affect: fearful, guarded SI: denies HI: denies VH/AH: auditory hallucinations telling her that she is a prostitute, that she will be killed, that she has STDs Delusions: paranoid/persecutory delusions Insight/judgment: impaired x 2. Memory/cog: alert, oriented to place, month and year but not situation. She thinks this is conspiracy to kill her. Diagnostics Vital Signs (24Hr): Vital Signs - 24 hr 10/05/24 08:00 10/05/24 20:00 Temperature 97.5 F 97.5 F Pulse Rate 68 71 Respiratory Rate 116 H 16 Blood Pressure 123/75 140/64 H Pulse Oximetry 97 97 Oxygen Delivery Method Room Air Room Air BMI result Body Mass Index 29.5 Labs 09/23/24 08:19 Medications Medications Current Medications Acetaminophen (Acetaminophen 325 Mg Tablet) 650 mg PO Q6H PRN PRN Reason: Headache/Pain, Scale 1-10 Last Admin: 10/05/24 21:09 Dose: 650 mg Al Hydroxide/Mg Hydroxide (Magnesium Hydrox/Alum Hydrox 30 Ml Oral.Susp) 30 ml PO Q6H PRN PRN Reason: Heartburn/Nausea Amlodipine Besylate (Amlodipine Besylate 5 Mg Tablet) 5 mg PO DAILY [facility]; Protocol Last Admin: 10/05/24 08:24 Dose: 5 mg Atorvastatin Calcium (Atorvastatin Calcium 40 Mg Tablet) 40 mg PO DAILY [facility] Last Admin: 10/05/24 08:24 Dose: 40 mg Calcium Carbonate (Calcium Carbonate 750 Mg Tab.Chew) 750 mg PO DAILY [facility] Last Admin: 10/05/24 08:28 Dose: Not Given Carvedilol (Carvedilol 25 Mg Tablet) 25 mg PO BID [facility]; Protocol Last Admin: 10/05/24 21:08 Dose: 25 mg Gabapentin (Gabapentin 300 Mg Capsule) 300 mg PO BID [facility] Last Admin: 10/05/24 21:08 Dose: 300 mg Levothyroxine Sodium (Levothyroxine Sodium 88 Mcg Tablet) 88 mcg PO DAILY@0600 [facility] Last Admin: 10/05/24 05:57 Dose: 88 mcg Magnesium Hydroxide (Milk Of Magnesia 30 Ml Oral.Susp) 30 ml PO DAILY PRN PRN Reason: Constipation Nicotine (Nicotine 21 Mg Patch.Td24) 21 mg TRANSDERMA DAILY PRN PRN Reason: nicotine craving Nicotine Polacrilex (Nicotine Polacrilex 2 Mg Gum) 2 mg BUCCAL Q2H PRN PRN Reason: Nicotine Cravings Olanzapine (Olanzapine 2.5 Mg Tablet) 2.5 mg PO BID PRN PRN Reason: anxiety/restlessness Last Admin: 10/04/24 22:46 Dose: 2.5 mg Polyethylene Glycol (Polyethylene Glycol 3350 17 Gm Powd.Pack) 17 gm PO DAILY PRN PRN Reason: Constipation Risperidone (Risperidone 2 Mg Tablet) 2 mg PO BEDTIME [facility] Last Admin: 10/05/24 21:08 Dose: 2 mg Risperidone (Risperidone 1 Mg Tablet) 1 mg PO DAILY [facility] Senna (Sennosides 8.6 Mg Tablet) 8.6 mg PO BEDTIME PRN PRN Reason: Constipation Last Admin: 10/01/24 23:52 Dose: 8.6 mg Senna/Docusate Sodium (Sennosides/Docusate Sodium Tablet) 1 tab PO BID [facility] On Hold: 10/04/24 20:39 Last Admin: 10/04/24 08:51 Dose: Not Given Trazodone HCl (Trazodone Hcl 50 Mg Tablet) 50 mg PO BEDTIME PRN PRN Reason: sleep Last Admin: 10/05/24 21:08 Dose: 50 mg Valsartan (Valsartan 160 Mg Tablet) 160 mg PO DAILY [facility] Last Admin: 10/05/24 08:24 Dose: 160 mg Zolpidem Tartrate (Zolpidem Tartrate 5 Mg Tablet) 10 mg PO BEDTIME [facility] Last Admin: 10/05/24 21:08 Dose: 10 mg Allergies Allergies Allergy/AdvReac Type Severity Reaction Status Date / Time morphine Allergy Unknown Verified 09/22/24 15:41 oxycodone (From Percocet) Allergy Unknown Verified 09/22/24 15:41 Assessment & Plan Assessment & Plan (1) Schizoaffective disorder: Status: Acute Code(s): F25.9 - Schizoaffective disorder, unspecified (2) Hypothyroidism: Status: Acute Code(s): E03.9 - Hypothyroidism, unspecified Plan Patient admitted with psychosis anxiety what appears to be cognitive impairment no reported history of dementia. Untreated hypothyroidism at this point since patient has not been taking medication. Initial labs unremarkable would check head CT scan B12 folate olanzapine started 2.5 mg at bedtime consider restart antidepressant had previously been on Cymbalta. Need further history from family regarding cognitive and psychiatric history. Encourage food and fluids would be good to obtain discharge summary from [place] admission PLAN 09/27- continue current medications but will consider switch to risperidone.filed to court. will obtain more information from family in terms of timeline of paranoia and psychosis. 09/28 d/c olanzapine, start risperidone 1mg po BID. 09/30 started ducosate for constipation , see if patient will engage more with provider tomorrow- 10/02 will change risperidone to 2mg po qhs. continue to present as paranoid, court pending tomorrow. 10/03 pt signed CV. continue treatment. 10/04 continue tx 10/05 increase risperidone 1mg po daily and 2mg po qhs. increase ambien back to 10mg po qhs. had tried lowered dose of ambien but pt had some difficulty sleeping. Reason for continued inpatient stay Substantial Risk for: inability to function Time Spent With Patient Time: Total time managing care of this patient today ____ minutes.
[2024-10-06] MEDS: Levothyroxine Sodium 88 MCG TABLET PO (05:38)
[2024-10-06 08:00] VITALS: BP 92/54; PULSE 67; RESP 16; TEMP 36.7; O2SAT 96
[2024-10-06] MEDS: Gabapentin 300 MG CAPSULE PO ×2 (08:23→21:14)
[2024-10-06] MEDS: risperiDONE 1 MG TABLET PO (08:24)
[2024-10-06] MEDS: Calcium Carbonate 750 MG TAB.CHEW PO (08:24)
[2024-10-06] MEDS: Atorvastatin Calcium 40 MG TABLET PO (08:24)
--- NOTE | 2024-10-06 08:53 | HO.PSYCHPN ---
Subjective Subjective Date of Service: 10/06/24 Reason For Visit: psychosis and SI/ decompensated Subjective Notes: Conditional Voluntary and 3 Day Interim History: Pt continues to present with paranoid delusions and AH, but with less intensity. She reports acid reflux and this morning BP was low- reports she felt dizzy. amlodipine was held. had increased dose of risperidone this morning, no sedation. Review of Systems Review of Systems Denies Mental Status Exam Mental Status Exam Narrative: Appearance: wearing hospital gown, fair hygiene, in NAD Behavior: guarded and suspicious Psychomotor: no agitation or retardation noted Speech: clear, normal rate/rhythm/volume, spontaneous TP: mostly linear TC: paranoid delusions thinking someone is trying to kill her and staff is talking about her Mood: upset Affect: fearful, guarded SI: denies HI: denies VH/AH: auditory hallucinations telling her that she is a prostitute, that she will be killed, that she has STDs Delusions: paranoid/persecutory delusions Insight/judgment: impaired x 2. Memory/cog: alert, oriented to place, month and year but not situation. She thinks this is conspiracy to kill her. Patient Appearance: Appropriate (dressed in ayla) Patient Orientation: Person, Place, Time and Situation Level of Consciousness: Awake and Alert Patient Behavior: Appropriate, Guarded (at times), Cooperative and Good Eye Contact Mood Description: Constricted Affect Description: Blunted Patient Cognition Impaired: Yes Ability to Follow Directions: Fair Speech Pattern: Perseverating Memory Description: Remote Impaired Diagnostics Vital Signs (24Hr): Vital Signs - 24 hr 10/05/24 20:00 10/06/24 08:00 Temperature 97.5 F 98.1 F Pulse Rate 71 67 Respiratory Rate 16 16 Blood Pressure 140/64 H 92/54 L Pulse Oximetry 97 96 Oxygen Delivery Method Room Air Room Air BMI result Body Mass Index 29.5 Labs 09/23/24 08:19 Medications Medications Current Medications Acetaminophen (Acetaminophen 325 Mg Tablet) 650 mg PO Q6H PRN PRN Reason: Headache/Pain, Scale 1-10 Last Admin: 10/05/24 21:09 Dose: 650 mg Al Hydroxide/Mg Hydroxide (Magnesium Hydrox/Alum Hydrox 30 Ml Oral.Susp) 30 ml PO Q6H PRN PRN Reason: Heartburn/Nausea Amlodipine Besylate (Amlodipine Besylate 5 Mg Tablet) 5 mg PO DAILY [facility]; Protocol Last Admin: 10/05/24 08:24 Dose: 5 mg Atorvastatin Calcium (Atorvastatin Calcium 40 Mg Tablet) 40 mg PO DAILY [facility] Last Admin: 10/06/24 08:24 Dose: 40 mg Calcium Carbonate (Calcium Carbonate 750 Mg Tab.Chew) 750 mg PO DAILY [facility] Last Admin: 10/06/24 08:24 Dose: 750 mg Carvedilol (Carvedilol 25 Mg Tablet) 25 mg PO BID [facility]; Protocol Last Admin: 10/05/24 21:08 Dose: 25 mg Gabapentin (Gabapentin 300 Mg Capsule) 300 mg PO BID [facility] Last Admin: 10/06/24 08:23 Dose: 300 mg Levothyroxine Sodium (Levothyroxine Sodium 88 Mcg Tablet) 88 mcg PO DAILY@0600 [facility] Last Admin: 10/06/24 05:38 Dose: 88 mcg Magnesium Hydroxide (Milk Of Magnesia 30 Ml Oral.Susp) 30 ml PO DAILY PRN PRN Reason: Constipation Nicotine (Nicotine 21 Mg Patch.Td24) 21 mg TRANSDERMA DAILY PRN PRN Reason: nicotine craving Nicotine Polacrilex (Nicotine Polacrilex 2 Mg Gum) 2 mg BUCCAL Q2H PRN PRN Reason: Nicotine Cravings Olanzapine (Olanzapine 2.5 Mg Tablet) 2.5 mg PO BID PRN PRN Reason: anxiety/restlessness Last Admin: 10/04/24 22:46 Dose: 2.5 mg Polyethylene Glycol (Polyethylene Glycol 3350 17 Gm Powd.Pack) 17 gm PO DAILY PRN PRN Reason: Constipation Risperidone (Risperidone 2 Mg Tablet) 2 mg PO BEDTIME [facility] Last Admin: 10/05/24 21:08 Dose: 2 mg Risperidone (Risperidone 1 Mg Tablet) 1 mg PO DAILY [facility] Last Admin: 10/06/24 08:24 Dose: 1 mg Senna (Sennosides 8.6 Mg Tablet) 8.6 mg PO BEDTIME PRN PRN Reason: Constipation Last Admin: 10/01/24 23:52 Dose: 8.6 mg Senna/Docusate Sodium (Sennosides/Docusate Sodium Tablet) 1 tab PO BID [facility] On Hold: 10/04/24 20:39 Last Admin: 10/04/24 08:51 Dose: Not Given Trazodone HCl (Trazodone Hcl 50 Mg Tablet) 50 mg PO BEDTIME PRN PRN Reason: sleep Last Admin: 10/05/24 21:08 Dose: 50 mg Valsartan (Valsartan 160 Mg Tablet) 160 mg PO DAILY [facility] Last Admin: 10/05/24 08:24 Dose: 160 mg Zolpidem Tartrate (Zolpidem Tartrate 5 Mg Tablet) 10 mg PO BEDTIME [facility] Last Admin: 10/05/24 21:08 Dose: 10 mg Allergies Allergies Allergy/AdvReac Type Severity Reaction Status Date / Time morphine Allergy Unknown Verified 09/22/24 15:41 oxycodone (From Percocet) Allergy Unknown Verified 09/22/24 15:41 Assessment & Plan Assessment & Plan (1) Schizoaffective disorder: Status: Acute Code(s): F25.9 - Schizoaffective disorder, unspecified (2) Hypothyroidism: Status: Acute Code(s): E03.9 - Hypothyroidism, unspecified Plan Patient admitted with psychosis anxiety what appears to be cognitive impairment no reported history of dementia. Untreated hypothyroidism at this point since patient has not been taking medication. Initial labs unremarkable would check head CT scan B12 folate olanzapine started 2.5 mg at bedtime consider restart antidepressant had previously been on Cymbalta. Need further history from family regarding cognitive and psychiatric history. Encourage food and fluids would be good to obtain discharge summary from [place] admission PLAN 09/27- continue current medications but will consider switch to risperidone.filed to court. will obtain more information from family in terms of timeline of paranoia and psychosis. 09/28 d/c olanzapine, start risperidone 1mg po BID. 09/30 started ducosate for constipation , see if patient will engage more with provider tomorrow- 10/02 will change risperidone to 2mg po qhs. continue to present as paranoid, court pending tomorrow. 10/03 pt signed CV. continue treatment. 10/04 continue tx 10/05 increase risperidone 1mg po daily and 2mg po qhs. increase ambien back to 10mg po qhs. had tried lowered dose of ambien but pt had some difficulty sleeping. 10/06 dizzy this AM, amlodipine held. continue to monitor ortho VS, may have to reduce dose of risperidone. Reason for continued inpatient stay Substantial Risk for: inability to function Time Spent With Patient Time: Total time managing care of this patient today ____ minutes.
[2024-10-06 20:00] VITALS: BP 134/70; PULSE 63; RESP 16; TEMP 36.6; O2SAT 98
[2024-10-06 21:14] VITALS: BP 134/70
[2024-10-06] MEDS: carvediloL 25 MG TABLET PO (21:14)
[2024-10-06] MEDS: risperiDONE 2 MG TABLET PO (21:15)
[2024-10-06] MEDS: Zolpidem Tartrate 5 MG TABLET 10 MG PO (21:15)
[2024-10-07] MEDS: Levothyroxine Sodium 88 MCG TABLET PO (06:11)
[2024-10-07 08:00] VITALS: BP 144/67; PULSE 74; RESP 16; TEMP 36.1; O2SAT 99
[2024-10-07] MEDS: risperiDONE 1 MG TABLET PO (08:58)
[2024-10-07] MEDS: Atorvastatin Calcium 40 MG TABLET PO (08:58)
[2024-10-07] MEDS: carvediloL 25 MG TABLET PO ×2 (08:58→21:13)
[2024-10-07] MEDS: Valsartan 160 MG TABLET PO (08:58)
[2024-10-07] MEDS: Gabapentin 300 MG CAPSULE PO ×2 (08:59→21:12)
[2024-10-07] MEDS: Calcium Carbonate 750 MG TAB.CHEW PO (08:59)
[2024-10-07] MEDS: Milk of Magnesia 30 ML ORAL.SUSP PO (09:14)
--- NOTE | 2024-10-07 12:31 | HO.PSYCHPN ---
Subjective Subjective Date of Service: 10/07/24 Reason For Visit: psychosis and SI/ decompensated Subjective Notes: Conditional Voluntary Interim History: Patient was seen and discussed in rounds today. Records and plans were reviewed. She has been more verbal, still paranoid but less so she functions independently on the unit. Medication compliant. No complaints or side effects. No behavioral issues. Review of Systems Review of Systems Yes all other systems are reviewed and are negative Mental Status Exam Mental Status Exam Narrative: In today's visit she is alert, somewhat oriented. Normal speech. Moderate eye contact. Affect is contained. No acute signs of psychosis. Paranoid ideations and delusions persisting. No SI. Cognitively compromised. Judgment is compromised. Diagnostics Vital Signs (24Hr): Vital Signs - 24 hr 10/06/24 20:00 10/06/24 21:14 10/07/24 08:00 Temperature 97.9 F 97.0 F Pulse Rate 63 74 Respiratory Rate 16 16 Blood Pressure 134/70 134/70 144/67 H Pulse Oximetry 98 99 Oxygen Delivery Method Room Air Room Air BMI result Body Mass Index 29.5 Labs 09/23/24 08:19 Medications Medications Current Medications Acetaminophen (Acetaminophen 325 Mg Tablet) 650 mg PO Q6H PRN PRN Reason: Headache/Pain, Scale 1-10 Last Admin: 10/05/24 21:09 Dose: 650 mg Al Hydroxide/Mg Hydroxide (Magnesium Hydrox/Alum Hydrox 30 Ml Oral.Susp) 30 ml PO Q6H PRN PRN Reason: Heartburn/Nausea Amlodipine Besylate (Amlodipine Besylate 5 Mg Tablet) 5 mg PO DAILY [facility]; Protocol On Hold: 10/06/24 09:42 Comment: gayatri Last Admin: 10/06/24 09:43 Dose: Not Given Atorvastatin Calcium (Atorvastatin Calcium 40 Mg Tablet) 40 mg PO DAILY [facility] Last Admin: 10/07/24 08:58 Dose: 40 mg Calcium Carbonate (Calcium Carbonate 750 Mg Tab.Chew) 750 mg PO DAILY [facility] Last Admin: 10/07/24 08:59 Dose: 750 mg Carvedilol (Carvedilol 25 Mg Tablet) 25 mg PO BID [facility]; Protocol Last Admin: 10/07/24 08:58 Dose: 25 mg Gabapentin (Gabapentin 300 Mg Capsule) 300 mg PO BID [facility] Last Admin: 10/07/24 08:59 Dose: 300 mg Levothyroxine Sodium (Levothyroxine Sodium 88 Mcg Tablet) 88 mcg PO DAILY@0600 [facility] Last Admin: 10/07/24 06:11 Dose: 88 mcg Magnesium Hydroxide (Milk Of Magnesia 30 Ml Oral.Susp) 30 ml PO DAILY PRN PRN Reason: Constipation Last Admin: 10/07/24 09:14 Dose: 30 ml Nicotine (Nicotine 21 Mg Patch.Td24) 21 mg TRANSDERMA DAILY PRN PRN Reason: nicotine craving Nicotine Polacrilex (Nicotine Polacrilex 2 Mg Gum) 2 mg BUCCAL Q2H PRN PRN Reason: Nicotine Cravings Olanzapine (Olanzapine 2.5 Mg Tablet) 2.5 mg PO BID PRN PRN Reason: anxiety/restlessness Last Admin: 10/04/24 22:46 Dose: 2.5 mg Polyethylene Glycol (Polyethylene Glycol 3350 17 Gm Powd.Pack) 17 gm PO DAILY PRN PRN Reason: Constipation Risperidone (Risperidone 2 Mg Tablet) 2 mg PO BEDTIME [facility] Last Admin: 10/06/24 21:15 Dose: 2 mg Risperidone (Risperidone 1 Mg Tablet) 1 mg PO DAILY [facility] Last Admin: 10/07/24 08:58 Dose: 1 mg Senna (Sennosides 8.6 Mg Tablet) 8.6 mg PO BEDTIME PRN PRN Reason: Constipation Last Admin: 10/01/24 23:52 Dose: 8.6 mg Senna/Docusate Sodium (Sennosides/Docusate Sodium Tablet) 1 tab PO BID [facility] On Hold: 10/04/24 20:39 Last Admin: 10/04/24 08:51 Dose: Not Given Trazodone HCl (Trazodone Hcl 50 Mg Tablet) 50 mg PO BEDTIME PRN PRN Reason: sleep Last Admin: 10/05/24 21:08 Dose: 50 mg Valsartan (Valsartan 160 Mg Tablet) 160 mg PO DAILY [facility] Last Admin: 10/07/24 08:58 Dose: 160 mg Zolpidem Tartrate (Zolpidem Tartrate 5 Mg Tablet) 10 mg PO BEDTIME [facility] Last Admin: 10/06/24 21:15 Dose: 10 mg Allergies Allergies Allergy/AdvReac Type Severity Reaction Status Date / Time morphine Allergy Unknown Verified 09/22/24 15:41 oxycodone (From Percocet) Allergy Unknown Verified 09/22/24 15:41 Assessment & Plan Assessment & Plan (1) Schizoaffective disorder: Status: Acute Code(s): F25.9 - Schizoaffective disorder, unspecified (2) Hypothyroidism: Status: Acute Code(s): E03.9 - Hypothyroidism, unspecified Plan Patient admitted with psychosis anxiety what appears to be cognitive impairment no reported history of dementia. Untreated hypothyroidism at this point since patient has not been taking medication. Initial labs unremarkable would check head CT scan B12 folate olanzapine started 2.5 mg at bedtime consider restart antidepressant had previously been on Cymbalta. Need further history from family regarding cognitive and psychiatric history. Encourage food and fluids would be good to obtain discharge summary from [place] admission PLAN 09/27- continue current medications but will consider switch to risperidone.filed to court. will obtain more information from family in terms of timeline of paranoia and psychosis. 09/28 d/c olanzapine, start risperidone 1mg po BID. 09/30 started ducosate for constipation , see if patient will engage more with provider tomorrow- 10/02 will change risperidone to 2mg po qhs. continue to present as paranoid, court pending tomorrow. 10/03 pt signed CV. continue treatment. 10/04 continue tx 10/05 increase risperidone 1mg po daily and 2mg po qhs. increase ambien back to 10mg po qhs. had tried lowered dose of ambien but pt had some difficulty sleeping. 10/06 dizzy this AM, amlodipine held. continue to monitor ortho VS, may have to reduce dose of risperidone. 10/07: Continue current regimen and plans Reason for continued inpatient stay Substantial Risk for: inability to function Time Spent With Patient Time: Total time managing care of this patient today ____ minutes.
[2024-10-07 19:47] VITALS: BP 144/81; PULSE 66; RESP 16; TEMP 36.6; O2SAT 98
[2024-10-07] MEDS: risperiDONE 2 MG TABLET PO (21:12)
[2024-10-07] MEDS: Zolpidem Tartrate 5 MG TABLET 10 MG PO (21:12)
[2024-10-07 21:13] VITALS: BP 149/79; PULSE 68
[2024-10-08] MEDS: Levothyroxine Sodium 88 MCG TABLET PO (05:07)
[2024-10-08 07:55] VITALS: BP 122/58; PULSE 67; RESP 16; TEMP 36.9; O2SAT 97
[2024-10-08] MEDS: Atorvastatin Calcium 40 MG TABLET PO (08:49)
[2024-10-08] MEDS: Valsartan 160 MG TABLET PO (08:49)
[2024-10-08] MEDS: Calcium Carbonate 750 MG TAB.CHEW PO (08:49)
[2024-10-08] MEDS: risperiDONE 1 MG TABLET PO (08:49)
[2024-10-08] MEDS: Gabapentin 300 MG CAPSULE PO ×2 (08:50→20:56)
[2024-10-08] MEDS: carvediloL 25 MG TABLET PO ×2 (08:50→20:56)
--- NOTE | 2024-10-08 11:28 | HO.PSYCHPN ---
Subjective Subjective Date of Service: 10/08/24 Reason For Visit: psychosis and SI/ decompensated Subjective Notes: Conditional Voluntary Interim History: Patient was seen and discussed in rounds today. Records and plans were reviewed. She has been fairly stable but still having some paranoia. It was observed that she was hiding 1 of her Ambien doses. Continues to have some mood lability. No dangerous behaviors. No SI. Review of Systems Review of Systems Yes all other systems are reviewed and are negative Mental Status Exam Mental Status Exam Narrative: In today's visit she is alert, somewhat oriented. Normal speech. Moderate eye contact. Affect is contained. No acute signs of psychosis. Paranoid ideations and delusions persisting. No SI. Cognitively compromised. Judgment is compromised. Diagnostics Vital Signs (24Hr): Vital Signs - 24 hr 10/07/24 19:47 10/07/24 21:13 10/08/24 07:55 Temperature 97.9 F 98.4 F Pulse Rate 66 68 67 Respiratory Rate 16 16 Blood Pressure 144/81 H 149/79 H 122/58 L Pulse Oximetry 98 97 Oxygen Delivery Method Room Air Room Air BMI result Body Mass Index 29.5 Labs 09/23/24 08:19 Medications Medications Current Medications Acetaminophen (Acetaminophen 325 Mg Tablet) 650 mg PO Q6H PRN PRN Reason: Headache/Pain, Scale 1-10 Last Admin: 10/05/24 21:09 Dose: 650 mg Al Hydroxide/Mg Hydroxide (Magnesium Hydrox/Alum Hydrox 30 Ml Oral.Susp) 30 ml PO Q6H PRN PRN Reason: Heartburn/Nausea Amlodipine Besylate (Amlodipine Besylate 5 Mg Tablet) 5 mg PO DAILY [facility]; Protocol On Hold: 10/06/24 09:42 Comment: gayatri Last Admin: 10/06/24 09:43 Dose: Not Given Atorvastatin Calcium (Atorvastatin Calcium 40 Mg Tablet) 40 mg PO DAILY [facility] Last Admin: 10/08/24 08:49 Dose: 40 mg Calcium Carbonate (Calcium Carbonate 750 Mg Tab.Chew) 750 mg PO DAILY [facility] Last Admin: 10/08/24 08:49 Dose: 750 mg Carvedilol (Carvedilol 25 Mg Tablet) 25 mg PO BID [facility]; Protocol Last Admin: 10/08/24 08:50 Dose: 25 mg Gabapentin (Gabapentin 300 Mg Capsule) 300 mg PO BID [facility] Last Admin: 10/08/24 08:50 Dose: 300 mg Levothyroxine Sodium (Levothyroxine Sodium 88 Mcg Tablet) 88 mcg PO DAILY@0600 [facility] Last Admin: 10/08/24 05:07 Dose: 88 mcg Magnesium Hydroxide (Milk Of Magnesia 30 Ml Oral.Susp) 30 ml PO DAILY PRN PRN Reason: Constipation Last Admin: 10/07/24 09:14 Dose: 30 ml Nicotine (Nicotine 21 Mg Patch.Td24) 21 mg TRANSDERMA DAILY PRN PRN Reason: nicotine craving Nicotine Polacrilex (Nicotine Polacrilex 2 Mg Gum) 2 mg BUCCAL Q2H PRN PRN Reason: Nicotine Cravings Olanzapine (Olanzapine 2.5 Mg Tablet) 2.5 mg PO BID PRN PRN Reason: anxiety/restlessness Last Admin: 10/04/24 22:46 Dose: 2.5 mg Polyethylene Glycol (Polyethylene Glycol 3350 17 Gm Powd.Pack) 17 gm PO DAILY PRN PRN Reason: Constipation Risperidone (Risperidone 2 Mg Tablet) 2 mg PO BEDTIME [facility] Last Admin: 10/07/24 21:12 Dose: 2 mg Risperidone (Risperidone 1 Mg Tablet) 1 mg PO DAILY [facility] Last Admin: 10/08/24 08:49 Dose: 1 mg Senna (Sennosides 8.6 Mg Tablet) 8.6 mg PO BEDTIME PRN PRN Reason: Constipation Last Admin: 10/01/24 23:52 Dose: 8.6 mg Senna/Docusate Sodium (Sennosides/Docusate Sodium Tablet) 1 tab PO BID [facility] On Hold: 10/04/24 20:39 Last Admin: 10/04/24 08:51 Dose: Not Given Trazodone HCl (Trazodone Hcl 50 Mg Tablet) 50 mg PO BEDTIME PRN PRN Reason: sleep Last Admin: 10/05/24 21:08 Dose: 50 mg Valsartan (Valsartan 160 Mg Tablet) 160 mg PO DAILY [facility] Last Admin: 10/08/24 08:49 Dose: 160 mg Zolpidem Tartrate (Zolpidem Tartrate 5 Mg Tablet) 10 mg PO BEDTIME [facility] Last Admin: 10/07/24 21:12 Dose: 10 mg Allergies Allergies Allergy/AdvReac Type Severity Reaction Status Date / Time morphine Allergy Unknown Verified 09/22/24 15:41 oxycodone (From Percocet) Allergy Unknown Verified 09/22/24 15:41 Assessment & Plan Assessment & Plan (1) Schizoaffective disorder: Status: Acute Code(s): F25.9 - Schizoaffective disorder, unspecified (2) Hypothyroidism: Status: Acute Code(s): E03.9 - Hypothyroidism, unspecified Plan Patient admitted with psychosis anxiety what appears to be cognitive impairment no reported history of dementia. Untreated hypothyroidism at this point since patient has not been taking medication. Initial labs unremarkable would check head CT scan B12 folate olanzapine started 2.5 mg at bedtime consider restart antidepressant had previously been on Cymbalta. Need further history from family regarding cognitive and psychiatric history. Encourage food and fluids would be good to obtain discharge summary from [place] admission PLAN 09/27- continue current medications but will consider switch to risperidone.filed to court. will obtain more information from family in terms of timeline of paranoia and psychosis. 09/28 d/c olanzapine, start risperidone 1mg po BID. 09/30 started ducosate for constipation , see if patient will engage more with provider tomorrow- 10/02 will change risperidone to 2mg po qhs. continue to present as paranoid, court pending tomorrow. 10/03 pt signed CV. continue treatment. 10/04 continue tx 10/05 increase risperidone 1mg po daily and 2mg po qhs. increase ambien back to 10mg po qhs. had tried lowered dose of ambien but pt had some difficulty sleeping. 10/06 dizzy this AM, amlodipine held. continue to monitor ortho VS, may have to reduce dose of risperidone. 10/07: Continue current regimen and plans 10/08: Continue current regimen and plans Reason for continued inpatient stay Substantial Risk for: med/psych decompensation Time Spent With Patient Time: Total time managing care of this patient today ____ minutes.
[2024-10-08 19:55] VITALS: BP 144/67; PULSE 65; RESP 18; TEMP 36.7; O2SAT 98
[2024-10-08] MEDS: Zolpidem Tartrate 5 MG TABLET 10 MG PO (20:56)
[2024-10-08] MEDS: risperiDONE 2 MG TABLET PO (20:56)
[2024-10-08] MEDS: Acetaminophen 325 MG TABLET 650 MG PO (21:59)
[2024-10-09] MEDS: Levothyroxine Sodium 88 MCG TABLET PO (05:37)
[2024-10-09 08:00] VITALS: BP 114/55; PULSE 71; RESP 16; TEMP 36.5; O2SAT 95
[2024-10-09 08:25] VITALS: BP 114/55; PULSE 71
[2024-10-09] MEDS: Gabapentin 300 MG CAPSULE PO ×2 (08:25→21:04)
[2024-10-09] MEDS: carvediloL 25 MG TABLET PO ×2 (08:25→21:03)
[2024-10-09 08:26] VITALS: BP 114/55
[2024-10-09] MEDS: Valsartan 160 MG TABLET PO (08:26)
[2024-10-09] MEDS: risperiDONE 1 MG TABLET PO (08:26)
[2024-10-09] MEDS: Atorvastatin Calcium 40 MG TABLET PO (08:26)
[2024-10-09] MEDS: Calcium Carbonate 750 MG TAB.CHEW PO (08:26)
--- NOTE | 2024-10-09 11:02 | P.PNPSI_ITS ---
Subjective Subjective Date of Service: 10/09/24 Reason For Visit: psychosis and SI/ decompensated Subjective Notes: Conditional Voluntary and 3 Day Interim History: Pt slept through the night. She continues to report staff are talking about her but states they have quiet down. She still thinks someone may be trying to harm her but appears calmer. She continues to be more visible on the unit and social with select peers. She is eating well. She agrees to get LIM on day of discharge, which is when 3 day is up on wednesday. No signs of EPS. Medication Compliance: Yes Review of Systems Review of Systems Denies Yes all other systems are reviewed and are negative Diagnostics Vital Signs (24Hr): Vital Signs - 24 hr 10/08/24 19:55 10/09/24 08:00 10/09/24 08:25 Temperature 98.1 F 97.7 F Pulse Rate 65 71 71 Respiratory Rate 18 16 Blood Pressure 144/67 H 114/55 L 114/55 L Pulse Oximetry 98 95 Oxygen Delivery Method Room Air Room Air 10/09/24 08:26 Temperature Pulse Rate Respiratory Rate Blood Pressure 114/55 L Pulse Oximetry Oxygen Delivery Method BMI result Body Mass Index 29.5 Labs 09/23/24 08:19 Medications Medications Current Medications Acetaminophen (Acetaminophen 325 Mg Tablet) 650 mg PO Q6H PRN PRN Reason: Headache/Pain, Scale 1-10 Last Admin: 10/08/24 21:59 Dose: 650 mg Al Hydroxide/Mg Hydroxide (Magnesium Hydrox/Alum Hydrox 30 Ml Oral.Susp) 30 ml PO Q6H PRN PRN Reason: Heartburn/Nausea Amlodipine Besylate (Amlodipine Besylate 5 Mg Tablet) 5 mg PO DAILY [facility]; Protocol On Hold: 10/06/24 09:42 Comment: gayatri Last Admin: 10/06/24 09:43 Dose: Not Given Atorvastatin Calcium (Atorvastatin Calcium 40 Mg Tablet) 40 mg PO DAILY [facility] Last Admin: 10/09/24 08:26 Dose: 40 mg Calcium Carbonate (Calcium Carbonate 750 Mg Tab.Chew) 750 mg PO DAILY [facility] Last Admin: 10/09/24 08:26 Dose: 750 mg Carvedilol (Carvedilol 25 Mg Tablet) 25 mg PO BID [facility]; Protocol Last Admin: 10/09/24 08:25 Dose: 25 mg Gabapentin (Gabapentin 300 Mg Capsule) 300 mg PO BID [facility] Last Admin: 10/09/24 08:25 Dose: 300 mg Levothyroxine Sodium (Levothyroxine Sodium 88 Mcg Tablet) 88 mcg PO DAILY@0600 [facility] Last Admin: 10/09/24 05:37 Dose: 88 mcg Magnesium Hydroxide (Milk Of Magnesia 30 Ml Oral.Susp) 30 ml PO DAILY PRN PRN Reason: Constipation Last Admin: 10/07/24 09:14 Dose: 30 ml Nicotine (Nicotine 21 Mg Patch.Td24) 21 mg TRANSDERMA DAILY PRN PRN Reason: nicotine craving Nicotine Polacrilex (Nicotine Polacrilex 2 Mg Gum) 2 mg BUCCAL Q2H PRN PRN Reason: Nicotine Cravings Olanzapine (Olanzapine 2.5 Mg Tablet) 2.5 mg PO BID PRN PRN Reason: anxiety/restlessness Last Admin: 10/04/24 22:46 Dose: 2.5 mg Polyethylene Glycol (Polyethylene Glycol 3350 17 Gm Powd.Pack) 17 gm PO DAILY PRN PRN Reason: Constipation Risperidone (Risperidone 2 Mg Tablet) 2 mg PO BEDTIME [facility] Last Admin: 10/08/24 20:56 Dose: 2 mg Risperidone (Risperidone 1 Mg Tablet) 1 mg PO DAILY [facility] Last Admin: 10/09/24 08:26 Dose: 1 mg Senna (Sennosides 8.6 Mg Tablet) 8.6 mg PO BEDTIME PRN PRN Reason: Constipation Last Admin: 10/01/24 23:52 Dose: 8.6 mg Senna/Docusate Sodium (Sennosides/Docusate Sodium Tablet) 1 tab PO BID [facility] On Hold: 10/04/24 20:39 Last Admin: 10/04/24 08:51 Dose: Not Given Trazodone HCl (Trazodone Hcl 50 Mg Tablet) 50 mg PO BEDTIME PRN PRN Reason: sleep Last Admin: 10/05/24 21:08 Dose: 50 mg Valsartan (Valsartan 160 Mg Tablet) 160 mg PO DAILY [facility] Last Admin: 10/09/24 08:26 Dose: 160 mg Zolpidem Tartrate (Zolpidem Tartrate 5 Mg Tablet) 10 mg PO BEDTIME [facility] Last Admin: 10/08/24 20:56 Dose: 10 mg Allergies Allergies Allergy/AdvReac Type Severity Reaction Status Date / Time morphine Allergy Unknown Verified 09/22/24 15:41 oxycodone (From Percocet) Allergy Unknown Verified 09/22/24 15:41 Assessment & Plan Assessment & Plan (1) Schizoaffective disorder: Status: Acute Code(s): F25.9 - Schizoaffective disorder, unspecified (2) Hypothyroidism: Status: Acute Code(s): E03.9 - Hypothyroidism, unspecified Plan Patient admitted with psychosis anxiety what appears to be cognitive impairment no reported history of dementia. Untreated hypothyroidism at this point since patient has not been taking medication. Initial labs unremarkable would check head CT scan B12 folate olanzapine started 2.5 mg at bedtime consider restart antidepressant had previously been on Cymbalta. Need further history from family regarding cognitive and psychiatric history. Encourage food and fluids would be good to obtain discharge summary from [place] admission PLAN 09/27- continue current medications but will consider switch to risperidone.filed to court. will obtain more information from family in terms of timeline of paranoia and psychosis. 09/28 d/c olanzapine, start risperidone 1mg po BID. 09/30 started ducosate for constipation , see if patient will engage more with provider tomorrow- 10/02 will change risperidone to 2mg po qhs. continue to present as paranoid, court pending tomorrow. 10/03 pt signed CV. continue treatment. 10/04 continue tx 10/05 increase risperidone 1mg po daily and 2mg po qhs. increase ambien back to 10mg po qhs. had tried lowered dose of ambien but pt had some difficulty sleeping. 10/06 dizzy this AM, amlodipine held. continue to monitor ortho VS, may have to reduce dose of risperidone. 10/07: Continue current regimen and plans 10/08: Continue current regimen and plans 10/09 continue tx. No dizziness. Simethicone for bloating added. Reason for continued inpatient stay Substantial Risk for: inability to function Time Spent With Patient Time: Total time managing care of this patient today ____ minutes.
[2024-10-09] MEDS: Simethicone 80 MG TAB.CHEW PO ×3 (16:04→21:04)
[2024-10-09 20:00] VITALS: BP 152/72; PULSE 61; RESP 16; TEMP 36.8; O2SAT 98
[2024-10-09] MEDS: risperiDONE 2 MG TABLET PO (21:04)
[2024-10-09] MEDS: Acetaminophen 325 MG TABLET 650 MG PO (21:04)
[2024-10-09] MEDS: Zolpidem Tartrate 5 MG TABLET 10 MG PO (21:04)
[2024-10-09] MEDS: traZODone HCL 50 MG TABLET PO (21:04)
[2024-10-10] MEDS: Levothyroxine Sodium 88 MCG TABLET PO (06:07)
[2024-10-10 08:00] VITALS: BP 147/63; PULSE 63; RESP 16; TEMP 36.5; O2SAT 97
[2024-10-10 09:43] VITALS: BP 147/63; PULSE 63
[2024-10-10] MEDS: carvediloL 25 MG TABLET PO ×2 (09:43→21:07)
[2024-10-10] MEDS: Gabapentin 300 MG CAPSULE PO ×2 (09:43→21:06)
[2024-10-10 09:44] VITALS: BP 147/63
[2024-10-10] MEDS: risperiDONE 1 MG TABLET PO (09:44)
[2024-10-10] MEDS: Simethicone 80 MG TAB.CHEW PO ×3 (09:44→21:12)
[2024-10-10] MEDS: Atorvastatin Calcium 40 MG TABLET PO (09:44)
[2024-10-10] MEDS: Valsartan 160 MG TABLET PO (09:44)
[2024-10-10 11:33] LABS: Creatinine Clr Calc Pharmacy 56.2; Estimated Glomerular Filt Rate > 60
[2024-10-10 19:59] VITALS: BP 136/60; PULSE 65; RESP 18; TEMP 36.8; O2SAT 96
[2024-10-10 20:00] VITALS: BP 136/60; PULSE 65; RESP 18; TEMP 36.8; O2SAT 96
[2024-10-10] MEDS: Zolpidem Tartrate 5 MG TABLET 10 MG PO (21:02)
[2024-10-10] MEDS: risperiDONE 2 MG TABLET PO (21:04)
[2024-10-10] MEDS: Acetaminophen 325 MG TABLET 650 MG PO (21:13)
[2024-10-11] MEDS: Omeprazole 20 MG CAPSULE.DR PO (05:55)
[2024-10-11] MEDS: Levothyroxine Sodium 88 MCG TABLET PO (05:55)
[2024-10-11 08:00] VITALS: BP 118/68; PULSE 67; RESP 18; TEMP 36.9; O2SAT 96
[2024-10-11] MEDS: Atorvastatin Calcium 40 MG TABLET PO (08:11)
[2024-10-11] MEDS: Valsartan 160 MG TABLET PO (08:11)
[2024-10-11] MEDS: Famotidine 20 MG TABLET PO (08:11)
[2024-10-11] MEDS: Gabapentin 300 MG CAPSULE PO (08:11)
[2024-10-11] MEDS: carvediloL 25 MG TABLET PO (08:11)
--- NOTE | 2024-10-11 08:18 | P.PNPSI_ITS ---
Subjective Subjective Date of Service: 10/10/24 Reason For Visit: psychosis and SI/ decompensated Subjective Notes: 3 Day Interim History: Pt sleeping well. She presents as less paranoid, more aware of surrounding and other aspects of her health. She does report feeling calmer and although no insight into her mental illness reports that staff are talking less about her. She denies SI/HI. continues to have VH/AH. more visible. Review of Systems Review of Systems Denies Yes all other systems are reviewed and are negative Mental Status Exam Mental Status Exam Narrative: Appearance: wearing hospital gown, fair hygiene, in NAD Behavior: guarded and suspicious Psychomotor: no agitation or retardation noted Speech: clear, normal rate/rhythm/volume, spontaneous TP: mostly linear TC: paranoid delusions thinking someone is trying to kill her and staff is talking about her Mood: upset Affect: fearful, guarded SI: denies HI: denies VH/AH: auditory hallucinations telling her that she is a prostitute, that she will be killed, that she has STDs Delusions: paranoid/persecutory delusions Insight/judgment: impaired x 2. Memory/cog: alert, oriented to place, month and year but not situation. She thinks this is conspiracy to kill her. Diagnostics Vital Signs (24Hr): Vital Signs - 24 hr 10/10/24 09:43 10/10/24 09:44 10/10/24 19:59 Temperature 98.2 F Pulse Rate 63 65 Respiratory Rate 18 Blood Pressure 147/63 H 147/63 H 136/60 Pulse Oximetry 96 Oxygen Delivery Method Room Air 10/10/24 20:00 10/11/24 08:00 Temperature 98.2 F 98.4 F Pulse Rate 65 67 Respiratory Rate 18 18 Blood Pressure 136/60 118/68 Pulse Oximetry 96 96 Oxygen Delivery Method Room Air Room Air BMI result Body Mass Index 29.5 Labs 10/10/24 11:13 Labs: Laboratory Results - last 48 hr 10/10/24 11:13 Creatinine 0.67 Estim Creat Clear Calc 56.2 Estimated GFR > 60 Medications Medications Current Medications Acetaminophen (Acetaminophen 325 Mg Tablet) 650 mg PO Q6H PRN PRN Reason: Headache/Pain, Scale 1-10 Last Admin: 10/10/24 21:13 Dose: 650 mg Al Hydroxide/Mg Hydroxide (Magnesium Hydrox/Alum Hydrox 30 Ml Oral.Susp) 30 ml PO Q6H PRN PRN Reason: Heartburn/Nausea Amlodipine Besylate (Amlodipine Besylate 5 Mg Tablet) 5 mg PO DAILY [facility]; Protocol On Hold: 10/06/24 09:42 Comment: hotn Last Admin: 10/06/24 09:43 Dose: Not Given Atorvastatin Calcium (Atorvastatin Calcium 40 Mg Tablet) 40 mg PO DAILY [facility] Last Admin: 10/11/24 08:11 Dose: 40 mg Calcium Carbonate (Calcium Carbonate 750 Mg Tab.Chew) 750 mg PO DAILY [facility] Last Admin: 10/11/24 08:11 Dose: 750 mg Carvedilol (Carvedilol 25 Mg Tablet) 25 mg PO BID [facility]; Protocol Last Admin: 10/11/24 08:11 Dose: 25 mg Famotidine (Famotidine 20 Mg Tablet) 20 mg PO DAILY [facility] Last Admin: 10/11/24 08:11 Dose: 20 mg Gabapentin (Gabapentin 300 Mg Capsule) 300 mg PO BID [facility] Last Admin: 10/11/24 08:11 Dose: 300 mg Levothyroxine Sodium (Levothyroxine Sodium 88 Mcg Tablet) 88 mcg PO DAILY@0600 [facility] Last Admin: 10/11/24 05:55 Dose: 88 mcg Magnesium Hydroxide (Milk Of Magnesia 30 Ml Oral.Susp) 30 ml PO DAILY PRN PRN Reason: Constipation Last Admin: 10/07/24 09:14 Dose: 30 ml Nicotine (Nicotine 21 Mg Patch.Td24) 21 mg TRANSDERMA DAILY PRN PRN Reason: nicotine craving Nicotine Polacrilex (Nicotine Polacrilex 2 Mg Gum) 2 mg BUCCAL Q2H PRN PRN Reason: Nicotine Cravings Olanzapine (Olanzapine 2.5 Mg Tablet) 2.5 mg PO BID PRN PRN Reason: anxiety/restlessness Last Admin: 10/04/24 22:46 Dose: 2.5 mg Omeprazole (Omeprazole 20 Mg Capsule.Dr) 20 mg PO DAILY@0630 [facility] Last Admin: 10/11/24 05:55 Dose: 20 mg Polyethylene Glycol (Polyethylene Glycol 3350 17 Gm Powd.Pack) 17 gm PO DAILY PRN PRN Reason: Constipation Risperidone (Risperidone 2 Mg Tablet) 2 mg PO BEDTIME [facility] Last Admin: 10/10/24 21:04 Dose: 2 mg Risperidone (Risperidone 1 Mg Tablet) 1 mg PO DAILY [facility] Last Admin: 10/11/24 08:11 Dose: 1 mg Risperidone (Risperidone Er 100 Mg/0.28 Ml Suser.Syr) 50 mg SUBCUT Q30D [facility] Senna (Sennosides 8.6 Mg Tablet) 8.6 mg PO BEDTIME PRN PRN Reason: Constipation Last Admin: 10/01/24 23:52 Dose: 8.6 mg Senna/Docusate Sodium (Sennosides/Docusate Sodium Tablet) 1 tab PO BID [facility] On Hold: 10/04/24 20:39 Last Admin: 10/04/24 08:51 Dose: Not Given Simethicone (Simethicone 80 Mg Tab.Chew) 80 mg PO QIDWMHS [facility] Last Admin: 10/11/24 08:11 Dose: 80 mg Trazodone HCl (Trazodone Hcl 50 Mg Tablet) 50 mg PO BEDTIME PRN PRN Reason: sleep Last Admin: 10/09/24 21:04 Dose: 50 mg Valsartan (Valsartan 160 Mg Tablet) 160 mg PO DAILY [facility] Last Admin: 10/11/24 08:11 Dose: 160 mg Zolpidem Tartrate (Zolpidem Tartrate 5 Mg Tablet) 10 mg PO BEDTIME [facility] Last Admin: 10/10/24 21:02 Dose: 10 mg Allergies Allergies Allergy/AdvReac Type Severity Reaction Status Date / Time morphine Allergy Unknown Verified 09/22/24 15:41 oxycodone (From Percocet) Allergy Unknown Verified 09/22/24 15:41 Assessment & Plan Assessment & Plan (1) Schizoaffective disorder: Status: Acute Code(s): F25.9 - Schizoaffective disorder, unspecified (2) Hypothyroidism: Status: Acute Code(s): E03.9 - Hypothyroidism, unspecified Plan Patient admitted with psychosis anxiety what appears to be cognitive impairment no reported history of dementia. Untreated hypothyroidism at this point since patient has not been taking medication. Initial labs unremarkable would check head CT scan B12 folate olanzapine started 2.5 mg at bedtime consider restart antidepressant had previously been on Cymbalta. Need further history from family regarding cognitive and psychiatric history. Encourage food and fluids would be good to obtain discharge summary from [place] admission PLAN 09/27- continue current medications but will consider switch to risperidone.filed to court. will obtain more information from family in terms of timeline of paranoia and psychosis. 09/28 d/c olanzapine, start risperidone 1mg po BID. 09/30 started ducosate for constipation , see if patient will engage more with provider tomorrow- 10/02 will change risperidone to 2mg po qhs. continue to present as paranoid, court pending tomorrow. 10/03 pt signed CV. continue treatment. 10/04 continue tx 10/05 increase risperidone 1mg po daily and 2mg po qhs. increase ambien back to 10mg po qhs. had tried lowered dose of ambien but pt had some difficulty sleeping. 10/06 dizzy this AM, amlodipine held. continue to monitor ortho VS, may have to reduce dose of risperidone. 10/07: Continue current regimen and plans 10/08: Continue current regimen and plans 10/09 continue tx. No dizziness. Simethicone for bloating added. 10/10 continue tx. pt agreed to receive LIM Uzedy 50mg IM [id number]. d/c oral risperidone. Reason for continued inpatient stay Substantial Risk for: inability to function Time Spent With Patient Time: Total time managing care of this patient today ____ minutes.
--- NOTE | 2024-10-11 08:20 | PM.PSYDC ---
DS: Providers Provider Date of Service: 10/11/24 Date of admission: 09/22/24 13:40 Date of discharge: 10/11/24 Primary care physician: None Physician DS: Diagnosis Discharge Diagnosis (1) Schizoaffective disorder: Status: Acute (2) Hypothyroidism: Status: Acute DS: Medications Discharge Medications Home Medications: Home Medications ?Medication ?Instructions ?Recorded ?Confirmed amlodipine 10 mg tablet 10 mg PO DAILY 09/22/24 09/22/24 atorvastatin 40 mg tablet 40 mg PO DAILY 09/22/24 09/22/24 calcium carbonate (Calcium 600) 600 mg PO DAILY 09/22/24 09/22/24 carvedilol 25 mg tablet 25 mg PO BID 09/22/24 09/22/24 gabapentin 300 mg capsule 300 mg PO BID 09/22/24 09/22/24 levothyroxine 88 mcg tablet 88 mcg PO DAILY 09/22/24 09/22/24 olmesartan 40 mg tablet 40 mg PO DAILY 09/22/24 09/22/24 trazodone 150 mg tablet 150 mg PO BEDTIME 09/22/24 09/22/24 Mental Status Exam Mental Status Exam Narrative: Appearance: casually groomed, improved hygiene, in NAD Behavior: cooperative Psychomotor: no agitation or retardation noted Speech: clear, normal rate/rhythm/volume, spontaneous TP: mostly linear TC:less paranoid Mood: better Affect: less paranoid and suspicious SI: denies HI: denies VH/AH: less AH Delusions: less paranoid/persecutory delusions Insight/judgment: improving x 2. Memory/cog: alert, oriented to place, month and year but not situation. Data Data Completed and Pending Completed studies during hospitalization [Text1]: 10/10/24 11:13 Creatinine 0.67 Estim Creat Clear Calc 56.2 Estimated GFR > 60 DS: Summary Hospital Course Hospital Course: Patient is admitted on a section 12 B. Patient is referred from [facility] Emergency room. Information from [facility]. Patient is a 6-year-old female who reportedly lives alone in her apartment in [place]. She was seen by the crisis team at her house. Patient has been seen in the past by Orlin Lambert has been on Cymbalta and trazodone in the past. She did have a hospitalization in the past in [place] reportedly under similar circumstances. Patient has most recently not been taking her medication saying it is not the correct medication. She feels according to evaluation that her children and others or reportedly poisoning her food changing her medication and reportedly hears people talking about these things. Patient reportedly has been depressed with poor concentration lack of appetite because she feels her food is poisoned. There is a question of past diagnosis of schizophrenia over this is unclear. Patient does not appear to have recently been prescribed any antipsychotic medication patient reportedly had made suicidal statements The patient had reportedly been prescribed gabapentin 600 b.i.d. Ambien 10 mg at HS atorvastatin 40 mg daily trazodone 150 at bedtime spironolactone 10 mg carvedilol 25 mg almost start and 40 mg unclear when the patient last took medication Medical Evaluation Reviewed: Yes HOSPITAL COURSE On the unit, pt was admitted on a sect 12b. She presented with paranoid delusions thinking people were talking about her and planning to kill her. She denied SI/HI. However, per daughter, pt had attempted to jump off car and had reported plan to jump off window if persecutory delusions did not stop. She was initially was started on olanzapine. She reported feeling tired and sedated. We discussed changing to risperidone. She tolerated risperidone well without signs of EPS. She was sleeping and eating well. Pt's affect gradually presented as less paranoid and less AH. However, her insight into mental illness did not improve. She reported staff not talking about her as much but reported that this was happening in the past. She was sleeping and eating well. She was continued on ambien for sleep. We tried to decrease dose from 10mg po qhs to 5mg po qhs but she had increase difficulty sleeping. She did agree to receive LIM of risperidone, Uzedy 50mg IM q30 days on day of discharge. Next dose due 11/09/2024. No aggression towards others or herself while on the unit. Family meeting to discuss dx and medication changes. It does appear that patient for decades had presented with suspicious and paranoid ideas, along with limited socialization with friends and family due to these suspiciousness. She had a prior inpatient psychiatric admission in [place] for paranoia. She has not been consistently prescribed an antipsychotic. It does seem that complexity of paranoid delusions and auditory hallucinations are related to a primarily psychotic disorder in schizophrenia spectrum. Status at Discharge Cognitive/behavioral status at discharge: Pt with less paranoid delusions. No SI/HI. Less auditory hallucinations. She is not aggressive towards self or others. She is sleeping with medications. Minimal insight into mental illness and need for treatment but agreable to take medications. Functional status at discharge: independent ambulation Overall status at discharge: patient is progressing back to baseline Time Spent with Patient Time attestation: Total time managing care of this patient today _45___ minutes. Time spent: Greater than 30 minutes Discharge Plan Discharge Anticipated Discharge Date/Time: 10/11/24 08:21 Patient Disposition: Home, Self-Care Discharge Diagnosis: Schizoaffective Disorder Referrals: Jade (Therapist) [Other] - 3-5 Days Referral Note: Jade will be reaching out to you after discharge. She will call to schedule an after acre appointment. If you'd like to reach out to her please call [facility] number listed. Aura Mathis NP [Nurse Practitioner, Family Practice] - 10/12/24 11:30 am Referral Note: You will see Aura in 10/12 at 11:30 AM. She is the nurse practioner under . You will see her in person. If you need ot cancel or reschedule please call the number listed below. Orlin Lambert APRN [Registered Nurse, Psychology] - 1 Week Discharge Medications: New atorvastatin 40 mg Tablet 40 mg PO BEDTIME Qty: 30 0RF carvedilol 25 mg Tablet 25 mg PO BID Qty: 60 0RF Protocol: Hold for SBP/HR < HOLD for SBP < : 90 HOLD for HR < : 60 gabapentin 300 mg Capsule 300 mg PO BEDTIME Qty: 30 0RF trazodone 50 mg Tablet 50 mg PO BEDTIME PRN (Reason: sleep) Qty: 30 0RF risperidone 50 mg/0.14 mL suspension,extended rel syring 50 mg subcut QMONTH Qty: 0.14 0RF Rx Instructions: NEXT DOSE ON 11/09/2024 sennosides [Senna Lax] 8.6 mg Tablet 8.6 mg PO BEDTIME PRN (Reason: Constipation) Qty: 30 0RF Antacid Ext Str (calcium carb) 300 mg (750 mg) Tablet,Chewable 2.5 tab PO DAILY Qty: 30 0RF levothyroxine 88 mcg Tablet 88 mcg PO DAILY@0600 Qty: 30 0RF famotidine 20 mg Tablet 20 mg PO DAILY Qty: 30 0RF omeprazole 20 mg Capsule,Delayed Release(Dr/Ec) 20 mg PO DAILY Qty: 30 0RF zolpidem 10 mg tablet 10 mg PO BEDTIME Qty: 30 0RF simethicone 80 mg Tablet,Chewable 80 mg PO QIDWMHS Qty: 90 0RF Continued olmesartan 40 mg Tablet 40 mg PO DAILY Qty: 30 0RF Discontinued atorvastatin 40 mg Tablet 40 mg PO DAILY calcium carbonate [Calcium 600] 600 mg calcium (1,500 mg) Tablet 600 mg PO DAILY trazodone 150 mg Tablet 150 mg PO BEDTIME gabapentin 300 mg Capsule 300 mg PO BID carvedilol 25 mg Tablet 25 mg PO BID Rx Instructions: must administer with a meal/food amlodipine 10 mg Tablet 10 mg PO DAILY levothyroxine 88 mcg tablet 88 mcg PO DAILY Discharge Orders: Discharge Order (Routine); Ordered 10/11/24 Ordered By: Sierra Carlisle Diet: Regular diet Activity on Discharge: As tolerated Stand Alone Forms: Patient Portal Discharge page Print Language: Ghanaian Care Plan Goals: 1. Maintain mood 2. No SI/HI 3. no aggression towards self or others. Health Concerns: Follow up with PCP Plan of Treatment: 1. Take medications as prescribed. 2. Go to nearest ED or call 911 in event of emergency Assessment: Pt with brighter, less paranoid affect. No aggression towards self or others. Less AH. Sleeping and eating well.
[2024-10-11] MEDS: risperiDONE ER 50 MG/0.14 ML SUSER.SYR SUBCUT (10:03)
--- NOTE | 2024-10-11 11:35 | PC.NURSE ---
First dose of Risperidone ( Uzedy) 50mg Sub Q given today in the abdomen at 1003.
== END 2024-10-11 11:30 | disposition home or self-care (01) | DRG 885 ==
LOC: HO.PM5 09-26 09:41 → HO.PGERI 09-26 14:36
PROVIDERS: Nurse Practitioner Psychiatric/Mental Health; Social Worker; Admitting Provider Psychiatry & Neurology Psychiatry; Visit Provider Clinical Nurse Specialist Psychiatric/Mental Health, Adult
DX: F25.9 Schizoaffective disorder, unspecified (principal); R45.851 Suicidal ideations; E03.9 Hypothyroidism, unspecified; I10 Essential (primary) hypertension; E78.5 Hyperlipidemia, unspecified; K21.9 Gastro-esophageal reflux disease without esophagitis; Z91.148 Patient's other noncompliance with medication regimen for other reason; Z79.890 Hormone replacement therapy; Z79.899 Other long term (current) drug therapy
CPT/HCPCS: 36415; 70450; 80053; 80061; 82565; 83036; 84439; 84443; J2799

== ENCOUNTER 2024-09-22 13:40 | Outpatient (BNV) | payer OTHER, SELFPAY | END 2024-09-24 09:18 | PROVIDERS: Admitting Provider Psychiatry & Neurology Psychiatry; Visit Provider Radiology Diagnostic Radiology | DX: R41.0 Disorientation, unspecified (principal); R44.3 Hallucinations, unspecified | CPT/HCPCS: 70450 ==

== ENCOUNTER → 2024-09-22 13:40 | Outpatient (BNV) | payer OTHER, SELFPAY | PROVIDERS: Admitting Provider Psychiatry & Neurology Psychiatry; Visit Provider Psychiatry & Neurology Psychiatry | DX: F32.3 Major depressive disorder, single episode, severe with psychotic features (principal); R41.89 Other symptoms and signs involving cognitive functions and awareness; R46.89 Other symptoms and signs involving appearance and behavior; E03.9 Hypothyroidism, unspecified | CPT/HCPCS: 90792 ==

== ENCOUNTER → 2024-09-22 13:40 | Outpatient (BNV) | payer OTHER, SELFPAY | PROVIDERS: Admitting Provider Psychiatry & Neurology Psychiatry; Visit Provider Psychiatry & Neurology Psychiatry | DX: F32.3 Major depressive disorder, single episode, severe with psychotic features (principal); R41.89 Other symptoms and signs involving cognitive functions and awareness; E03.9 Hypothyroidism, unspecified; R46.89 Other symptoms and signs involving appearance and behavior | CPT/HCPCS: 99231; 99232 ==

== ENCOUNTER → 2024-09-22 13:40 | Outpatient (BNV) | payer OTHER, SELFPAY | PROVIDERS: Admitting Provider Psychiatry & Neurology Psychiatry; Visit Provider Student in an Organized Health Care Education/Training Program | DX: Z00.8 Encounter for other general examination (principal) | CPT/HCPCS: 99222 ==